=== PATIENT | male | born 1985 | race Caucasian/White ===

== ENCOUNTER 2018-08-29 20:35 | Observation (INO) ==
[2018-08-29] MEDS ORDERED: Aspirin 81 MG TAB.CHEW PO STA (20:57)
--- NOTE | 2018-08-29 21:01 | Emergency Department Note ---
Disposition Clinical Impression: Premature ventricular contractions Chest pain Qualifiers: Chest pain type: unspecified Qualified Code(s): R07.9 - Chest pain, unspecified Syncope Qualifiers: Syncope type: unspecified Qualified Code(s): R55 - Syncope and collapse Disposition: Admitted As Inpatient Condition: Good Chest Pain HPI - General Chief Complaint: ED Chest Pain Stated Complaint: CP / +LOC Time Seen by Provider: 08/29/18 20:51 Source: patient, family Limitations: no limitations Vital Signs Reviewed: Yes Nursing Notes Reviewed: Yes - History of Present Illness HPI Narrative: 33-year-old male who presents emergency Department with complaints of chest pain, shortness of breath. He states the pain started approximately 5 PM today. He has been sudden onset with a sided severe pressure that radiates into his left arm and neck. He admits to similar episode of pain and he was told he had a "small heart attack" at [facility]. He also notes shortness of breath and diaphoresis with this pain. He has had 2 episodes of nausea and vomiting since onset of pain. He has taken ibuprofen at home without improvement of symptoms. Family with him states he had an episode of loss of consciousness where he was sitting comfortably and then hunched over and was unresponsive. He took approximately 3-5 minutes to come back to his baseline mental status. He otherwise denies any abdominal pain, back pain, diarrhea, dysuria, hematuria. Severity scale (1-10): 10 - Related Data Home Medications Medication Instructions Recorded Confirmed Tizanidine HCl [Zanaflex] 4 mg PO TID PRN 06/24/18 08/30/18 Ibuprofen [Motrin] 800 mg PO Q8HR PRN 08/30/18 08/30/18 Allergies Allergy/AdvReac Type Severity Reaction Status Date / Time dicyclomine [From Bentyl] Allergy Anaphylaxis Verified 08/29/18 20:40 hydrocodone [From [place]] Allergy Itching Verified 08/29/18 20:40 morphine Allergy Difficulty Verified 08/29/18 20:40 Breathing oxycodone [From Percocet] Allergy Hives Verified 08/29/18 20:40 Review of Systems: In addition to that documented in the HPI above, the additional ROS was obtained: General: Denies fever. Denies chills. Denies weight loss. Denies behavioral change. Eyes: Denies visual changes. ENT: Denies nasal congestion. Denies sore throat. Denies hearing change. Cardio: ADMITS chest pain. Denies palpitations. Respiratory: Denies cough. ADMITS shortness of breath. Denies wheezing. GI: ADMITS nausea, vomiting, DENIES diarrhea. Denies hematochezia or melena. Denies abdominal pain. : Denies dysuria, hematuria, or urinary retention MSK: Denies back pain. Denies joint swelling. Neuro: Denies slurred speech. Denies numbness or tingling. Denies focal weakness. Denies headache. ADMITS loss of consciousness. Psych: Denies mood changes. Chest Pain PMH - Past Medical History Medical history: Reports: GERD, myocardial infarction Surgical history: Reports: appendectomy, cholecystectomy, orthopedic, other Psychiatric history: Reports: no psych history - Social History Smoking Status: Current every day smoker Alcohol use: Reports: rarely Drug use: Reports: none Physical Exam General: Conversant. No apparent distress. Follow commands. Appears stated age. Slightly diaphoretic. Neck: No JVD. Trachea midline. Neck supple. Eyes: PERRL. No scleral icterus. HENT: Normocephalic and atraumatic. Moist mucus membranes. Cardiovascular: Regular rate and rhythm. Normal S1 and S2. No murmurs appreciated. Normal capillary refill. Extremities well perfused with 2+ distal pulses equal bilaterally. No edema. Pulmonary: Normal and equal breath sounds bilaterally, anteriorly and posteriorly. No wheezes, rales, or rhonchi. Not in respiratory distress. Speaks in full sentences. Abdomen: Soft, nondistended, and tontender. No bruits or masses. No guarding. Neuro: Alert and oriented x3. No slurred speech. No focal deficits noted. Skin: No rashes noted on visualized skin. Musculoskeletal: No bony abnormalities visualized. Moves all extremities. Psych: Anxious appearing. Makes appropriate eye contact. - General Limitations: no limitations General appearance: alert Course Vital Signs Temperature 98.6 F 08/29/18 20:45 Pulse Rate 76 08/29/18 20:45 Respiratory Rate 28 08/29/18 20:45 Blood Pressure 168/105 08/29/18 20:45 O2 Sat by Pulse Oximetry 98 08/29/18 20:45 Temperature 98.1 F 08/30/18 00:19 Pulse Rate 70 08/30/18 00:19 Respiratory Rate 22 08/30/18 00:19 Blood Pressure 95/63 08/30/18 00:19 O2 Sat by Pulse Oximetry 99 08/30/18 00:19 Oxygen Delivery Oxygen Delivery Room Air Chest Pain - MDM Narrative Medical decision making narrative: 33-year-old male presenting with chest pain which started a few hours prior to arrival. The patient states he does have history of heart attack and this feels similar. Initial vital signs are significant for hypertension. The patient does appear anxious on exam and mildly diaphoretic. Did obtain chest x-ray, EKG, CBC, BMP, troponin as well as urine drug screen. Chest x-ray shows no evidence of focal consolidation. EKG shows significant PVCs which persisted throughout his emergency department stay. CBC and BMP were grossly unremarkable. Troponin 1 negative. The patient did have significant imp rovement in his pain with nitroglycerin as well as Ativan. His vital signs have remained stable while here in the emergency department though after nitroglycerin his blood pressure did drop. Of note these blood pressures were while he was sleeping comfortably. 1 L fluid bolus given. Given the patient's history and heart score of 5 to believe he will require further ACS rule out. Aspirin 325mg given. Discussed case with on-call hospitalist Dr. Maravilla who agrees with plan for admission and accepts the patient to the inpatient service. Patient agrees with and understands course of treatment plan including plan for admission. All questions answered. - Medical Records Medical records reviewed: Yes I reviewed the patient's medical records. - Lab Data Lab results reviewed: Yes I reviewed the patient's lab results. Result diagrams: 08/29/18 20:52 08/29/18 20:52 Lab Results 08/29/18 08/29/18 08/29/18 Range/Units 20:52 20:52 20:52 WBC 7.5 (4.3-11.1) K/mcL RBC 5.01 (4.19-5.50) M/mcL Hgb 15.1 (12.9-16.9) g/dL Hct 42.9 (37.5-50.1) % MCV 85.6 (83.0-100.0) fL MCH 30.1 (28.0-33.3) pg MCHC 35.2 (31.6-35.5) g/dL RDW 12.3 (11.5-14.5) % Plt Count 376 (140-400) K/mcL MPV 9.5 (9.4-12.4) fL Immature Gran % 0.3 (0-4) % Seg Neutrophils % 60.5 % Lymphocytes % 28.6 % Monocytes % 7.0 % Eosinophils % 2.9 % Basophils % 0.7 % Neutrophils # 4.5 (1.6-8.9) K/mcL Lymphocytes # 2.1 (0.6-4.6) K/mcL Monocytes # 0.5 (0.0-1.3) K/mcL Eosinophils # 0.2 (0.0-0.6) K/mcL Basophils # 0.1 (0.0-0.2) K/mcL PT 12.7 H (9.4-12.1) Seconds INR 1.1 APTT 34.7 (26.0-36.0) Seconds Sodium 140 (136-145) mEq/L Potassium 3.5 (3.5-5.1) mEq/L Chloride 102 (98-107) mEq/L Carbon Dioxide 29 (23-29) mEq/L BUN 14 (6-20) mg/dL Creatinine 1.21 (0.70-1.30) mg/dL Est GFR ( Amer) > 60 (> 60) Est GFR (Non-Af Amer) > 60 (> 60) BUN/Creatinine Ratio 12 (6-26) Glucose 93 (70-105) mg/dL Calculated Osmolality 290 (280-300) Calcium 9.7 (8.6-10.3) mg/dL Troponin I < 0.03 (< 0.04) ng/mL Urine Opiates Screen (Rqqnjp=965) ng/mL Ur Barbiturates Screen (Ahuuif=227) ng/mL Ur Phencyclidine Scrn (Cutoff=25) ng/mL Ur Amphetamines Screen (Gpvpnl=2509) ng/mL U Benzodiazepines Scrn (Taeono=490) ng/mL Urine Cocaine Screen (Cutoff= 300) ng/mL U Marijuana (THC) Screen (Cutoff = 50) ng/mL Ur Drug Screen Interp 08/29/18 Range/Units 21:30 WBC (4.3-11.1) K/mcL RBC (4.19-5.50) M/mcL Hgb (12.9-16.9) g/dL Hct (37.5-50.1) % MCV (83.0-100.0) fL MCH (28.0-33.3) pg MCHC (31.6-35.5) g/dL RDW (11.5-14.5) % Plt Count (140-400) K/mcL MPV (9.4-12.4) fL Immature Gran % (0-4) % Seg Neutrophils % % Lymphocytes % % Monocytes % % Eosinophils % % Basophils % % Neutrophils # (1.6-8.9) K/mcL Lymphocytes # (0.6-4.6) K/mcL Monocytes # (0.0-1.3) K/mcL Eosinophils # (0.0-0.6) K/mcL Basophils # (0.0-0.2) K/mcL PT (9.4-12.1) Seconds INR APTT (26.0-36.0) Seconds Sodium (136-145) mEq/L Potassium (3.5-5.1) mEq/L Chloride (98-107) mEq/L Carbon Dioxide (23-29) mEq/L BUN (6-20) mg/dL Creatinine (0.70-1.30) mg/dL Est GFR ( Amer) (> 60) Est GFR (Non-Af Amer) (> 60) BUN/Creatinine Ratio (6-26) Glucose (70-105) mg/dL Calculated Osmolality (280-300) Calcium (8.6-10.3) mg/dL Troponin I (< 0.04) ng/mL Urine Opiates Screen Negative (Xyexbo=717) ng/mL Ur Barbiturates Screen Negative (Stdfph=125) ng/mL Ur Phencyclidine Scrn Negative (Cutoff=25) ng/mL Ur Amphetamines Screen Negative (Wcuwfv=5466) ng/mL U Benzodiazepines Scrn Negative (Zyeyoi=512) ng/mL Urine Cocaine Screen Negative (Cutoff= 300) ng/mL U Marijuana (THC) Screen Positive H (Cutoff = 50) ng/mL Ur Drug Screen Interp See Below - Radiology Data Radiology results reviewed: Yes I reviewed the patient's radiology results. Chest X-Ray 08/29/18 20:52 IMPRESSION: No acute process. D/ / Ashish Espinoza MD / sAhish Espinoza MD Interpreting Provider: Ashish Espinoza MD - EKG Data EKG attestation: Yes I reviewed and interpreted this EKG. EKG results narrative: Normal sinus rhythm rate of 98. Multiple PVCs otherwise no evidence of acute ST elevations. This is when compared with prior from 06/15/16 PVCs are new. Heart Score - Score History: Highly Suspicious EKG: Non Specific repolarisation Disturbance Age: Less than 45 Risk Factors: Equal/Greater than 3 risk factor or history of atherosclerotic disease Troponin: Less than normal limit HEART Score Total: 5
[2018-08-29] MEDS ORDERED: *HR* LORazepam 2 MG/ML VIAL IVP ONE (21:10)
[2018-08-29] MEDS: Nitroglycerin 0.4 MG TAB.SUBL SL PRN ×2 (21:13→21:21)
--- NOTE | 2018-08-29 21:17 | Emergency Department Note ---
Disposition Clinical Impression: Premature ventricular contractions Chest pain Qualifiers: Chest pain type: unspecified Qualified Code(s): R07.9 - Chest pain, unspecified Syncope Qualifiers: Syncope type: unspecified Qualified Code(s): R55 - Syncope and collapse Disposition: Admitted As Inpatient Condition: Good General Adult HPI - General Chief complaint: ED Chest Pain Stated complaint: CP / +LOC Time Seen by Provider: 08/29/18 20:51 Source: patient, family Limitations: no limitations Nursing Notes Reviewed: Yes Vital Signs Reviewed: Yes - History of Present Illness Pain Scale: 10 - Related Data Home Medications Medication Instructions Recorded Confirmed Gabapentin [Neurontin] 300 mg PO TID 06/24/18 06/24/18 Tizanidine HCl [Zanaflex] 4 mg PO TID PRN 06/24/18 06/24/18 Previous Rx's Medication Instructions Recorded Clindamycin [Cleocin] 150 mg PO Q6HR #7 capsule 06/24/18 Ibuprofen [Motrin] 800 mg PO Q8HR #30 tablet 06/24/18 Allergies Allergy/AdvReac Type Severity Reaction Status Date / Time dicyclomine [From Bentyl] Allergy Anaphylaxis Verified 08/29/18 20:40 hydrocodone [From [place]] Allergy Itching Verified 08/29/18 20:40 morphine Allergy Difficulty Verified 08/29/18 20:40 Breathing oxycodone [From Percocet] Allergy Hives Verified 08/29/18 20:40 Past Medical History - Past Medical History Medical history: Reports: GERD, myocardial infarction Surgical history: Reports: appendectomy, cholecystectomy, orthopedic, other Psychiatric history: Reports: no psych history - Social History Smoking Status: Current every day smoker Smokeless Tobacco Status: No Alcohol use: Reports: rarely Drug use: Reports: none Physical Exam - General Limitations: no limitations General appearance: alert Course Vital Signs Temperature 98.6 F 08/29/18 20:45 Pulse Rate 76 08/29/18 20:45 Respiratory Rate 28 08/29/18 20:45 Blood Pressure 168/105 08/29/18 20:45 O2 Sat by Pulse Oximetry 98 08/29/18 20:45 Temperature 98.6 F 08/29/18 20:45 Pulse Rate 79 08/29/18 23:06 Respiratory Rate 16 08/29/18 23:06 Blood Pressure 95/61 08/29/18 23:06 O2 Sat by Pulse Oximetry 100 08/29/18 23:06 Oxygen Delivery Oxygen Delivery Room Air Medical Decision Making - Medical Records Medical records reviewed: Yes I reviewed the patient's medical records. - Lab Data Lab results reviewed: Yes I reviewed the patient's lab results. Result diagrams: 08/29/18 20:52 08/29/18 20:52 Lab Results 08/29/18 08/29/18 08/29/18 Range/Units 20:52 20:52 20:52 WBC 7.5 (4.3-11.1) K/mcL RBC 5.01 (4.19-5.50) M/mcL Hgb 15.1 (12.9-16.9) g/dL Hct 42.9 (37.5-50.1) % MCV 85.6 (83.0-100.0) fL MCH 30.1 (28.0-33.3) pg MCHC 35.2 (31.6-35.5) g/dL RDW 12.3 (11.5-14.5) % Plt Count 376 (140-400) K/mcL MPV 9.5 (9.4-12.4) fL Immature Gran % 0.3 (0-4) % Seg Neutrophils % 60.5 % Lymphocytes % 28.6 % Monocytes % 7.0 % Eosinophils % 2.9 % Basophils % 0.7 % Neutrophils # 4.5 (1.6-8.9) K/mcL Lymphocytes # 2.1 (0.6-4.6) K/mcL Monocytes # 0.5 (0.0-1.3) K/mcL Eosinophils # 0.2 (0.0-0.6) K/mcL Basophils # 0.1 (0.0-0.2) K/mcL PT 12.7 H (9.4-12.1) Seconds INR 1.1 APTT 34.7 (26.0-36.0) Seconds Sodium 140 (136-145) mEq/L Potassium 3.5 (3.5-5.1) mEq/L Chloride 102 (98-107) mEq/L Carbon Dioxide 29 (23-29) mEq/L BUN 14 (6-20) mg/dL Creatinine 1.21 (0.70-1.30) mg/dL Est GFR ( Amer) > 60 (> 60) Est GFR (Non-Af Amer) > 60 (> 60) BUN/Creatinine Ratio 12 (6-26) Glucose 93 (70-105) mg/dL Calculated Osmolality 290 (280-300) Calcium 9.7 (8.6-10.3) mg/dL Troponin I < 0.03 (< 0.04) ng/mL Urine Opiates Screen (Sibtbk=425) ng/mL Ur Barbiturates Screen (Ixkhkm=648) ng/mL Ur Phencyclidine Scrn (Cutoff=25) ng/mL Ur Amphetamines Screen (Zxenrp=0251) ng/mL U Benzodiazepines Scrn (Cvfprx=271) ng/mL Urine Cocaine Screen (Cutoff= 300) ng/mL U Marijuana (THC) Screen (Cutoff = 50) ng/mL Ur Drug Screen Interp 08/29/18 Range/Units 21:30 WBC (4.3-11.1) K/mcL RBC (4.19-5.50) M/mcL Hgb (12.9-16.9) g/dL Hct (37.5-50.1) % MCV (83.0-100.0) fL MCH (28.0-33.3) pg MCHC (31.6-35.5) g/dL RDW (11.5-14.5) % Plt Count (140-400) K/mcL MPV (9.4-12.4) fL Immature Gran % (0-4) % Seg Neutrophils % % Lymphocytes % % Monocytes % % Eosinophils % % Basophils % % Neutrophils # (1.6-8.9) K/mcL Lymphocytes # (0.6-4.6) K/mcL Monocytes # (0.0-1.3) K/mcL Eosinophils # (0.0-0.6) K/mcL Basophils # (0.0-0.2) K/mcL PT (9.4-12.1) Seconds INR APTT (26.0-36.0) Seconds Sodium (136-145) mEq/L Potassium (3.5-5.1) mEq/L Chloride (98-107) mEq/L Carbon Dioxide (23-29) mEq/L BUN (6-20) mg/dL Creatinine (0.70-1.30) mg/dL Est GFR ( Amer) (> 60) Est GFR (Non-Af Amer) (> 60) BUN/Creatinine Ratio (6-26) Glucose (70-105) mg/dL Calculated Osmolality (280-300) Calcium (8.6-10.3) mg/dL Troponin I (< 0.04) ng/mL Urine Opiates Screen Negative (Dtcxpo=892) ng/mL Ur Barbiturates Screen Negative (Escwfn=412) ng/mL Ur Phencyclidine Scrn Negative (Cutoff=25) ng/mL Ur Amphetamines Screen Negative (Aixxqt=3825) ng/mL U Benzodiazepines Scrn Negative (Ucntmi=691) ng/mL Urine Cocaine Screen Negative (Cutoff= 300) ng/mL U Marijuana (THC) Screen Positive H (Cutoff = 50) ng/mL Ur Drug Screen Interp See Below - Radiology Data Radiology results reviewed: Yes I reviewed the patient's radiology results. Chest X-Ray 08/29/18 20:52 IMPRESSION: No acute process. D/ / Ashish Espinoza MD / Ashish Espinoza MD Interpreting Provider: Ashish Espinoza MD - EKG Data EKG #1 EKG attestation: Yes I reviewed and interpreted this EKG. EKG results narrative: Normal sinus rhythm with ventricular rate of 98. No ST segment elevation or depression. Multiple unifocal PVCs. Otherwise no significant change from prior EKG dated 06/15/2016. Attestation Statement - Attestation Attestation: I, Richard Awan MD, personally evaluated this patient and discussed their management with the resident physician. I reviewed the resident's note and agree with the documented findings, medical decision making, and plan of care. 33-year-old male presents to the emergency department with a complaint of severe sharp stabbing left upper chest pain that started 4 hours prior to arrival. He states it feels like a knife twisting in his chest. It hurts to breathe. Feels short of breath. He did have some nausea and vomited. Mild diaphoresis also. The pain radiates to the left shoulder and left upper arm. Patient reportedly had an [place] in 2016 with similar symptoms. Also he apparently had a syncopal episode about 1.5 hours prior to coming to the emergency department. This was witnessed and companions report that he was sitting in a chair leaned over forward into his lap and rocking because of the pain when he passed out and fell over onto his side. He was hyperventilating during this episode. He continued breathing while he was unresponsive and did not get cyanotic. They report he was unresponsive for a minute or 2 and then woke up. On examination patient is a well-developed well-nourished male in no acute distress but appears to be in moderate discomfort. He is hyperventilating and appears very anxious. There is no cyanosis or diaphoresis. No tenderness to palpation of the chest wall. Breath sounds are clear and equal bilaterally. Heart is regular rate and rhythm with frequent ectopy. Frequent PVCs on the air sampling and monitoring. Abdomen soft and nontender with normal bowel sounds. No pedal edema. EKG shows a normal sinus rhythm with ventricular rate of 98. No ST segment elevation or depression. There are frequent unifocal PVCs. Otherwise no s ignificant change from prior EKG dated 06/15/2016. Chest x-ray negative. Labs reviewed. The hospitalist, Dr. Maravilla, was consulted and accepted admission of the patient.
[2018-08-29 21:19] LABS: Basophils # 0.1 K/mcL (0.0-0.2); Basophils % 0.7 %; Eosinophils # 0.2 K/mcL (0.0-0.6); Eosinophils % 2.9 %; Hematocrit 42.9 % (37.5-50.1); Hemoglobin 15.1 g/dL (12.9-16.9); Immature Granulocytes % 0.3 % (0-4); Lymphocytes # 2.1 K/mcL (0.6-4.6); Lymphocytes % 28.6 %; Mean Corpuscular HGB Conc 35.2 g/dL (31.6-35.5); Mean Corpuscular Hemoglobin 30.1 pg (28.0-33.3); Mean Corpuscular Volume 85.6 fL (83.0-100.0); Mean Platelet Volume 9.5 fL (9.4-12.4); Monocytes # 0.5 K/mcL (0.0-1.3); Neutrophils # 4.5 K/mcL (1.6-8.9); Platelet Count 376 K/mcL (140-400); Red Blood Count 5.01 M/mcL (4.19-5.50); Red Cell Distribution Width 12.3 % (11.5-14.5); Segmented Neutrophils % 60.5 %
[2018-08-29 21:26] LABS: INR 1.1; Prothrombin Time 12.7 Seconds (9.4-12.1)
[2018-08-29 21:29] LABS: Activated Partial Thrombo Time 34.7 Seconds (26.0-36.0)
[2018-08-29 21:38] LABS: BUN/Creatinine Ratio 12 (6-26); Blood Urea Nitrogen 14 mg/dL (6-20); Calcium 9.7 mg/dL (8.6-10.3); Carbon Dioxide 29 mEq/L (23-29); Chloride 102 mEq/L (98-107); Glucose 93 mg/dL (70-105); Osmolality,Calculated 290 (280-300); Potassium 3.5 mEq/L (3.5-5.1); Sodium 140 mEq/L (136-145); eGFR For Non-African Americans > 60 (> 60)
[2018-08-29 21:39] LABS: Troponin I < 0.03 ng/mL (< 0.04)
[2018-08-29 21:51] LABS: Amphetamine Screen,Urine Negative ng/mL (Cutoff=1000); Barbiturate Screen,Urine Negative ng/mL (Cutoff=200); Benzodiazepines Screen,Urine Negative ng/mL (Cutoff=200); Cannabinoid Screen,Urine Positive ng/mL (Cutoff = 50); Cocaine Screen,Urine Negative ng/mL (Cutoff= 300); Opiate Screen,Urine Negative ng/mL (Cutoff=300); Phencyclidine Screen,Urine Negative ng/mL (Cutoff=25)
[2018-08-29] MEDS ORDERED: 0.9 % Sodium Chloride 1,000 ML IVC ONE (23:10)
[2018-08-29] MEDS ORDERED: 0.9 % Sodium Chloride 1,000 ML ONE (23:12)
[2018-08-30] MEDS ORDERED: Naloxone 0.4 MG/ML INJ IVP PRN (00:43)
[2018-08-30] MEDS ORDERED: tiZANidine 4 MG TABLET PO PRN (00:48)
--- NOTE | 2018-08-30 01:01 | Internal Med History&Physical ---
Date of Encounter: 08/30/18 Time of Encounter: 00:58 Internal Medicine - H&P: HPI Chief complaint: Chest Pain History of present illness: Mr. Richard is a 33 year old male with a past medical history of GERD, smoking history and reported NM in 2016 who presents with chest pain. Patient states that around 5 PM yesterday afternoon while sitting on the couch watching TV, he developed sudden onset left-sided chest pain, radiating to his left arm and neck. Pain described as if someone was repeatedly stabbing him from the inside out. Pain was 9 out of 10 in intensity. Does not recall any aggravating factors. Patient did state that pain diminished after receiving nitroglycerin here in the office hospital. Patient vomited nonbloody nonbilious emesis 1 hour prior to arrival. Patient initially assumed symptoms are secondary to a muscle pull or anxiety attack which has happened before. However, when eventually made him come in was that he passed out while sitting on the floor when she does not recall. Syncopal episode was witnessed by his who states that he was sitting on the floor and then all of a sudden rolled over. She states he was unconscious for approximately 1-2 minutes. Does not report seeing any tonic- clonic activity. No reports of any postictal confusion, however, patient does state that he felt off balance after he stood up which took him a few minutes to regain. Patient states that in 2016 he had a similar episode for which she was evaluated at [facility] and was told he had a "mini heart attack". Patient is currently not on any medications except he reports he takes 800 mg of ibuprofen approximately 3-4 times a week for headaches or shoulder pain. Patient does report dark stools for the past couple days. Patient denies any drug use aside from occasional marijuana. Patient currently smokes a pack to a pack and half a day. Reports significant family history of heart disease. Denies any family history of sudden cardiac . On arrival patient was afebrile and hypertensive with a blood pressure of 168/105. Laboratory workup was relatively unremarkable. Initial troponin was negative. EKG showed biatrial enlargement with multiple PVCs. Chest x-ray was unremarkable. Patient received loading dose of aspirin. Past Med Surg Social Fam HX - Past Medical History Medical history: GERD, myocardial infarction Psychiatric history: no psych history - Past Surgical History Surgical History: appendectomy, cholecystectomy, orthopedic, other Additional surgical history: Labrum repair in the L shoulder - Social History Smoking Status: Current every day smoker Packs per day: 1 Smokeless Tobacco Status: No Alcohol use: rarely Drug use: none - Family History Mother Living Status: Still Living Hx Family Cancer: Yes (Lung, Breast, Colorectal cancer) Hx Family Medical Disorders: Yes (Kidney Failure) Internal Medicine - H&P: Meds Tizanidine HCl [Zanaflex] 4 mg PO TID PRN 06/24/18 [History] Ibuprofen [Motrin] 800 mg PO Q8HR PRN 08/30/18 [History] Allergy/AdvReac Type Severity Reaction Status Date / Time dicyclomine [From Bentyl] Allergy Anaphylaxis Verified 08/29/18 20:40 hydrocodone [From [place]] Allergy Itching Verified 08/29/18 20:40 morphine Allergy Difficulty Verified 08/29/18 20:40 Breathing oxycodone [From Percocet] Allergy Hives Verified 08/29/18 20:40 All Systems PM: A 10-system review of systems was performed and is negative for pertinent findings except as documented above in the HPI. - Constitutional Constitutional: no chills, no fever(s), no night sweats - EENT Eyes: no change in vision, no discharge, no pain, no photophobia Ears: no ear discharge, no ear pain, no tinnitus Nose, mouth and throat: no dysphagia, no nasal discharge, no neck pain, no sore throat - Cardiovascular Cardiovascular ROS IM: no chest pain, no diaphoresis, no dyspnea, no lightheadedness, no palpitations, no syncope - Respiratory Respiratory: no cough, no dyspnea, no wheezing, no excessive phlegm production - Gastrointestinal Gastrointestinal: no abdominal pain, no diarrhea, no hematemesis, no hematochezia, no melena, no nausea, no vomiting - Musculoskeletal Musculoskeletal ROS IM: no numbness, no tingling - Integumentary Integumentary IM: no rash, no unusual bruising - Neurological Neurological ROS: no confusion, no convulsions, no focal weakness, no numbness, no tingling, no tremor(s) - Hematologic/Lymphatic Hematologic/Lymphatic: no easy bruising - Constitutional Vitals: Temp Pulse Resp BP Pulse Ox 98.1 F 70 22 95/63 99 08/30/18 00:19 08/30/18 00:19 08/30/18 00:19 08/30/18 00:19 08/30/18 00:19 Exam: General: Alert and oriented 3 lying in bed complaining of chest pain. Skin:Normal color, no rash, no lesions. HEENT:EOM, pupils equal, round and reactive. Cardiovascular:Normal S1 & S2, no rubs, murmurs or gallops. No JVD. Pulse regular. Lungs:Normal breath sounds, no wheezes or crackles. Abdomen:Soft, non-tender, no rigidity. Extremities:No deformity, no edema or tenderness, no joint swelling or clubbing. Neurological:Normal cognition and motor skills. Pulses:Carotid and radial pulses normal +2. Rest of the physical exam is non contributory Internal Med - H&P Results - Labs CBC & Chem 7: 08/30/18 03:12 08/30/18 03:12 Labs: Short CBC 08/29/18 Range/Units 20:52 WBC 7.5 (4.3-11.1) K/mcL Hgb 15.1 (12.9-16.9) g/dL Hct 42.9 (37.5-50.1) % Plt Count 376 (140-400) K/mcL Neutrophils # 4.5 (1.6-8.9) K/mcL BMP 08/29/18 20:52 Sodium 140 Potassium 3.5 Chloride 102 Carbon Dioxide 29 BUN 14 Creatinine 1.21 Glucose 93 Calcium 9.7 Cardiac Enzymes 08/29/18 Range/Units 20:52 Troponin I < 0.03 (< 0.04) ng/mL - Impressions ITS Impressions Chest X-Ray 08/29/18 20:52 IMPRESSION: No acute process. D/ / Ashish Espinoza MD / Ashish Espinoza MD Interpreting Provider: Ashish Espinoza MD - Assessment and plan (1) Chest pain Status: Acute Assessment and plan: Patient reported NM in 2016 presents with atypical chest pain described as left- sided, radiating to his left arm and neck, sharp/stabbing, non-pleuritic in nature. Negative troponins. EKG shows biatrial enlargement with frequent PVCs. UA positive for marijuana. -Trend troponin -Telemetry -We will obtain a CTA to rule out dissection given hypertension and syncope -We will obtain stress test in the morning if CT imaging and troponins remain negative. Qualifiers: Chest pain type: unspecified Qualified Code(s): R07.9 - Chest pain, unspecified (2) Premature ventricular contractions Status: Acute Assessment and plan: Frequent PVCs noted on EKG. We will continue to monitor for now. (3) Syncope Status: Acute Assessment and plan: Report of syncope in the setting of chest pain witnessed by patient's lasting 1-2 minutes with no reports of tonic-clonic activity or post-ictal confusion; patient reports feeling off balance for several minutes shortly after arising. Low suspicion for seizure. -We will check orthostatics -We will obtain echocardiogram -We will obtain stool guaiac given reported NSAID use and dark stools. -See chest pain above Qualifiers: Syncope type: unspecified Qualified Code(s): R55 - Syncope and collapse (4) DVT prophylaxis Status: Acute Assessment and plan: Pneumatic compression devices - Time Spent With Patient Total time spent is greater than 50% in coordination of care (as documented) at patient's floor/unit and/or counseling patient:
[2018-08-30 03:57] LABS: Hematocrit 36.8 % (37.5-50.1); Mean Corpuscular HGB Conc 34.5 g/dL (31.6-35.5); Mean Corpuscular Hemoglobin 30.1 pg (28.0-33.3); Mean Corpuscular Volume 87.2 fL (83.0-100.0); Mean Platelet Volume 9.7 fL (9.4-12.4); Platelet Count 299 K/mcL (140-400); Red Blood Count 4.22 M/mcL (4.19-5.50); Red Cell Distribution Width 12.2 % (11.5-14.5)
[2018-08-30 04:00] LABS: Hemoglobin 12.7 g/dL (12.9-16.9)
[2018-08-30] MEDS ORDERED: 0.9 % Sodium Chloride 1,000 ML IVC SCH (04:00)
[2018-08-30 04:18] LABS: BUN/Creatinine Ratio 19 (6-26); Blood Urea Nitrogen 19 mg/dL (6-20); Calcium 8.5 mg/dL (8.6-10.3); Carbon Dioxide 27 mEq/L (23-29); Chloride 108 mEq/L (98-107); Glucose 90 mg/dL (70-105); Magnesium 2.1 mg/dL (1.6-2.6); Osmolality,Calculated 294 (280-300); Potassium 3.7 mEq/L (3.5-5.1); Sodium 141 mEq/L (136-145); eGFR For Non-African Americans > 60 (> 60)
[2018-08-30] MEDS ORDERED: Isovue-370 500 ML BOTTLE IVP ONE (06:19)
[2018-08-30] MEDS ORDERED: Regadenoson 0.4 MG/5 ML SYRINGE IVP ONE (07:56)
[2018-08-30] MEDS ORDERED: *HR* OxyCODONE/APAP 5/325 TABLET PO ONE (11:15)
[2018-08-30 11:48] VITALS: BP 116/70
--- NOTE | 2018-08-30 12:18 | Discharge Summary ---
<June Mitchell - Last Filed: 08/30/18 12:44> - NOTES TO OUTPATIENT PROVIDER Notes to Outpatient Provider: PVC and syncope. No concerning arrythmias while on telemetry. Orders not resulted at time of discharge: Pending orders 08/30/18 01:09 NM lexy perf SPECT multi [NM] Routine 08/30/18 06:07 Stool guiac [Occult Blood,Stool] [BF] Routine Date of Encounter: 08/30/18 Time of Encounter: 10:00 - Discharge Diagnosis (1) DVT prophylaxis Priority: Secondary Status: Acute (2) Chest pain Priority: Primary Status: Acute Qualifiers: Chest pain type: unspecified Qualified Code(s): R07.9 - Chest pain, unspecified (3) Premature ventricular contractions Priority: Secondary Status: Acute (4) Syncope Priority: Secondary Status: Acute Qualifiers: Syncope type: unspecified Qualified Code(s): R55 - Syncope and collapse Hospital course: Mr. Richard is a 33 year old male who presented to the ED with chest pain. Chest x-ray showed no acute process, CTA for dissection was negative for aortic dissection. Nuclear stress test is negative for ischemic changes but did note occasional PVCs during stress. Echo showed an EF of 55% and no abnormalities. Troponins are negative 3. EKG showed no evidence of acute ST elevation. Patient no signs of infection white blood cell count was within normal limits and patient was afebrile. Urine drug screen postive for marijuana. Chest pain was not able to be reproduced upon physical exam. Chest pain improved with Percocet. ACS ruled out. No signs of pericarditis. Chest pain most likely related to anxiety or GERD as he has had panic attacks. Syncope likely due to vasovagal but EKG did show PVCs. Will need to f/u with cardiology for PVCs and syncope. Patient was discharged home with instructions to follow-up with cardiology within the next week and primary care physician within the next week. Discharge discussed with: patient - Time Spent with Patient Total time spent providing and/or coordinating discharge services: - Discharge Medications Home Medications: RX: Tizanidine HCl [Zanaflex] 4 mg PO TID PRN 06/24/18 [History] RX: Ibuprofen [Motrin] 800 mg PO Q8HR PRN 08/30/18 [History] Allergies/Adverse Reactions: Allergy/AdvReac Type Severity Reaction Status Date / Time dicyclomine [From Bentyl] Allergy Anaphylaxis Verified 08/29/18 20:40 hydrocodone [From [place]] Allergy Itching Verified 08/29/18 20:40 morphine Allergy Difficulty Verified 08/29/18 20:40 Breathing oxycodone [From Percocet] Allergy Hives Verified 08/29/18 20:40 Date of admission: 08/29/18 23:01 Primary care physician: PCP NONE Consults: 08/30/18 00:43 Consult to Cardiac Rehabilitation-Phase1 [CONS] Routine Comment: Reason for Consult: AMI Call Completed: Yes - Constitutional Vitals: Temp Pulse Resp BP Pulse Ox 97.5 F L 69 18 116/70 98 08/30/18 11:47 08/30/18 11:47 08/30/18 11:47 08/30/18 11:47 08/30/18 11:47 Exam: Constitutional: Alert, in no acute distress Head: Normocephalic, atraumatic Heart: Normal, regular rate and rhythm, no murmurs, no chest tenderness Lungs: Clear to auscultation, no wheezes, rales, or rhonchi Abdomen: Soft, nondistended, nontender, bowel sounds present and normal, no guarding or rigidity. Extremities: No edema, No clubbing, radial pulse +2/4, capillary refill <2sec. Skin: Skin warm and dry, no lesions, no rashes, no jaundice Neurologic: Cranial nerves II through XII grossly intact, strength 5/5 in all extremities Psych: Cooperative with exam, good eye contact, cognitive function intact, speech clear, thought process logical, and goal directed - Patient Status Disposition: Home, Self-Care Condition: Good Functional capacity at discharge: independent ambulation Overall status at discharge: patient is progressing back to baseline - Discharge Instructions Instructions: Chest Pain (DC), Chest Pain (GEN) Follow Up With: [facility] [Provider Group] (An appointment has been requested. the office will contact you at home to schedule an appointment. ) [facility] [Outside] - 09/07/18 2:00 pm Additional Instructions: Please call to follow-up with cardiology outpatient within the next week for fainting. Please call your primary care physician to schedule an appointment within the next week. - Diet and Activity Activity: increase activity as tolerated Diet: advance to your usual diet <Angeles Nava - Last Filed: 08/30/18 14:13> Orders not resulted at time of discharge: Pending orders 08/30/18 01:09 NM lexy perf SPECT multi [NM] Routine 08/30/18 06:07 Stool guiac [Occult Blood,Stool] [BF] Routine Date of Encounter: 08/30/18 - Discharge Diagnosis (1) DVT prophylaxis Status: Acute (2) Chest pain Status: Acute Qualifiers: Chest pain type: unspecified Qualified Code(s): R07.9 - Chest pain, unspecified (3) Premature ventricular contractions Status: Acute (4) Syncope Status: Acute Qualifiers: Syncope type: unspecified Qualified Code(s): R55 - Syncope and collapse Hospital course: Mr. Richard is a 33 year old male - Time Spent with Patient Total time spent providing and/or coordinating discharge services: Date of admission: 08/29/18 23:01 Primary care physician: PCP NONE Consults: 08/30/18 00:43 Consult to Cardiac Rehabilitation-Phase1 [CONS] Routine Comment: Reason for Consult: AMI Call Completed: Yes - Constitutional Vitals: Temp Pulse Resp BP Pulse Ox 97.5 F L 69 18 116/70 98 08/30/18 11:47 08/30/18 11:47 08/30/18 11:47 08/30/18 11:47 08/30/18 11:47 - Attending Attestation I examined this patient and my medical decision-making was reviewed with the Resident Physician Dr. Mitchell. I agree with the documented findings, disposition and treatment plan as described except to the extent set forth below. Mr. Richard is a 33 year old male with a past medical history of GERD, smoking history and reported MS in 2016 who presented with left sided chest pain. His pain relived with narcotics + Benadryl. He was admitted in the hospital and placed him on payable processor. His EKG did not show any ST, T changes. He does have multiple PVCs. He did go for nuclear stress test which came back is negative for any ischemia/infarction. His his CT of the chest is negative for any aortic dissection. His chest pain seems to be atypical and due to musculoskeletal. Will d/c him home in stable condition. Recommend to use Tylenol and Motrin as needed. Also counseled to quit drugs since his UDS came back as positive for marijuana. I did [id number] encounter more than 8 hours apart from colleague Dr. Roberts admission. chest; CTA No wheezing, no crackles, reproducible chest wall tenderness + Heart: S1S2+ RRR No murmurs
== END 2018-08-30 14:28 | disposition home or self-care (01) ==
LOC: 3BNU 20:35 → EMEROOARM 20:35 → SUATTDRO 23:01 → 3BNU 23:38
PROVIDERS: ADMIT Internal Medicine; ATTEND Family Medicine

== ENCOUNTER 2019-01-25 16:23 | Observation (INO) ==
--- NOTE | 2019-01-25 16:51 | Emergency Department Note ---
Disposition Clinical Impression: Suicidal ideation, Depression, Acute anxiety, Suicide attempt by drug overdose, Rhabdomyolysis, Marijuana abuse Disposition: Admitted As Inpatient Time of Disposition: 21:24 General Adult HPI - General Chief complaint: ED Psychiatric Symptoms Stated complaint: med clearance Time Seen by Provider: 01/25/19 16:49 Source: patient, family, EMS Limitations: no limitations - History of Present Illness HPI Narrative: 33-year-old male with history of psychiatric disease reports emergency department under a pink slip from [facility], the patient has been suicidal and attempted to overdose on Effexor yesterday. He states he took 10 75 mg tablets about 11:30 PM last night. He reports he has had insomnia and has not slept for 5 days. He scraped his left hand but describes no acute physically injury otherwise. His immunizations are up-to-date with tetanus shot being 2 years ago. The patient has had increasing anxiety and depression. His just left him and after she exited the premises he attempted overdose. The patient was sent to the emergency department for medical clearance and has been pre-accepted to the [facility] psychiatric service. The patient denies chest pain shortness of breath or syncope. No abdominal pain vomiting diarrhea or significant injury. No history of headache neck stiffness rash convulsion or weakness or numbness in the arms or legs. The patient does not describe palpitations. Pain Scale: 0 - Related Data Home Medications Medication Instructions Recorded Confirmed No Known Home Drugs 01/25/19 01/25/19 Allergies Allergy/AdvReac Type Severity Reaction Status Date / Time dicyclomine [From Bentyl] Allergy Anaphylaxis Verified 01/25/19 16:29 hydrocodone [From [place]] Allergy Itching Verified 01/25/19 16:29 morphine Allergy Difficulty Verified 01/25/19 16:29 Breathing oxycodone [From Percocet] Allergy Hives Verified 01/25/19 16:29 All systems ED: reviewed and negative except as stated. Past Medical History - Past Medical History Medical history: Reports: GERD, myocardial infarction Surgical history: Reports: appendectomy, cholecystectomy, orthopedic, other Psychiatric history: Reports: no psych history - Social History Smoking Status: Current every day smoker Smokeless Tobacco Status: No Alcohol use: Reports: none Drug use: Reports: none, marijuana Physical Exam - General Limitations: no limitations General appearance: alert, in no apparent distress - Head Head exam: atraumatic, normocephalic, normal inspection - Eye Eye exam: Present: normal appearance, PERRL, EOMI - ENT ENT exam: normal exam, normal oropharynx, mucous membranes moist, TM's normal bilaterally, normal external ear exam - Neck Neck exam: Present: normal inspection, full ROM, trachea midline - Chest Chest inspection: Present: normal inspection, symmetric chest wall rise. Absent: tenderness - Respiratory Respiratory exam: Present: normal lung sounds bilaterally. Absent: respiratory distress, prolonged expiratory phase - Cardiovascular Cardiovascular exam: Present: regular rate, normal rhythm, normal heart sounds - Abdominal Exam Abdominal exam: Present: soft, Non-Tender, normal bowel sounds. Absent: tenderness, distention, guarding, rebound, rigidity, trauma - Extremities Exam Extremities exam: Present: full ROM, normal capillary refill, other (Minor abrasions left dorsal metacarpal phalangeal areas without deep wound or evidence of bony or joint abnormality. No evidence of neurovascular or neuromuscular compromise in any extremity. The other extremities appear to be generally atraumatic warm and well-perfused.). Absent: tenderness, pedal edema, joint swelling, calf tenderness - Expanded Lower Extremity Exam Neurovascular/Tendon exam: Present: normal capillary refill. Absent: motor deficit, sensory deficit, tendon deficit, extremity cold to touch, pallor - Back Exam Back exam: Present: normal inspection, full ROM. Absent: tenderness, CVA tenderness (R), CVA tenderness (L), vertebral tenderness - Neurological Exam Neurological exam: Present: alert, oriented X3, CN II-XII intact. Absent: motor sensory deficit - Psychiatric Psychiatric exam: Present: normal affect, normal mood - Skin Skin exam: Present: warm, dry, intact, normal color Course Vital Signs Temperature 98.6 F 01/25/19 16:29 Pulse Rate 75 01/25/19 16:29 Respiratory Rate 15 01/25/19 16:29 Blood Pressure 130/90 01/25/19 16:29 O2 Sat by Pulse Oximetry 98 01/25/19 16:29 Temperature 98.6 F 01/25/19 16:29 Pulse Rate 75 01/25/19 16:29 Respiratory Rate 15 01/25/19 16:29 Blood Pressure 130/90 01/25/19 16:29 O2 Sat by Pulse Oximetry 98 01/25/19 16:29 Oxygen Delivery Oxygen Delivery Room Air Medical Decision Making - [facility] Narrative Medical decision making narrative: The patient apparently attempted an overdose taking Effexor 75 mg 10 tablets at about 11:30 PM. Poison control was notified, EKG reviewed, routine labs recommended and observation. The patient's laboratory studies were reviewed, he appears to have an element of rhabdomyolysis. IV fluids were ordered. Potassium 3.2 magnesium pending, potassium chloride ordered by mouth. The [facility] hiatric counselors evaluated the patient and felt that based on the rhabdomyolysis the patient would best be observed and admitted to the hospital under medical service and treated prior to psychiatric disposition or admission. Based on the patient's reported suicide attempt, Effexor ingestion, rha bdomyolysis, and hypokalemia, I also thought it would be appropriate to admit the patient to the hospital. He is agreeable and appears to be stable. I discussed the case with the hospitalist on-call who has excepted the patient to his care. - Lab Data Lab results reviewed: Yes I reviewed the patient's lab results. Result diagrams: 01/25/19 17:04 01/25/19 17:04 Lab Results 01/25/19 01/25/19 01/25/19 Range/Units 17:04 17:04 17:04 WBC 11.1 (4.3-11.1) K/mcL RBC 4.94 (4.19-5.50) M/mcL Hgb 14.7 (12.9-16.9) g/dL Hct 42.8 (37.5-50.1) % MCV 86.6 (83.0-100.0) fL MCH 29.8 (28.0-33.3) pg MCHC 34.3 (31.6-35.5) g/dL RDW 12.7 (11.5-14.5) % Plt Count 315 (140-400) K/mcL MPV 9.5 (9.4-12.4) fL Immature Gran % 0.4 (0-4) % Seg Neutrophils % 66.9 % Lymphocytes % 21.1 % Monocytes % 8.4 % Eosinophils % 2.6 % Basophils % 0.6 % Neutrophils # 7.4 (1.6-8.9) K/mcL Lymphocytes # 2.3 (0.6-4.6) K/mcL Monocytes # 0.9 (0.0-1.3) K/mcL Eosinophils # 0.3 (0.0-0.6) K/mcL Basophils # 0.1 (0.0-0.2) K/mcL Sodium 139 (136-145) mEq/L Potassium 3.2 L (3.5-5.1) mEq/L Chloride 100 (98-107) mEq/L Carbon Dioxide 28 (23-29) mEq/L BUN 15 (6-20) mg/dL Creatinine 0.93 (0.70-1.30) mg/dL Est GFR ( Amer) > 60 (> 60) Est GFR (Non-Af Amer) > 60 (> 60) BUN/Creatinine Ratio 16 (6-26) Glucose 89 (70-105) mg/dL Calculated Osmolality 288 (280-300) Calcium 9.4 (8.6-10.3) mg/dL Magnesium 2.2 (1.6-2.6) mg/dL Total Bilirubin 0.8 (0.3-1.0) mg/dL Direct Bilirubin 0.2 (0.0-0.2) mg/dL Indirect Bilirubin 0.6 (0.0-1.2) mg/dL AST 55 H (13-39) Units/L ALT 23 (7-52) Units/L Alkaline Phosphatase 54 (34-104) Units/L Creatine Kinase 3193 H (30-223) Units/L Serum Total Protein 7.2 (6.4-8.9) g/dL Albumin 4.6 (3.5-5.7) g/dL Globulin 2.6 (2.4-3.5) g/dL Albumin/Globulin Ratio 1.8 (1.1-2.2) Urine Color (Yellow) Urine Clarity (Clear) Urine pH (5.0-8.0) pH Units Ur Specific [place] (1.010-1.025) Urine Protein (Neg-Trace) mg/dL Urine Glucose (UA) (Normal) mg/dL Urine Ketones (Negative) mg/dL Urine Blood (Negative) Urine Nitrite (Negative) Urine Bilirubin (Negative) Urine Urobilinogen (Normal) mg/dL Ur Leukocyte Esterase (Negative) Salicylates < 2.5 L (15.0-30.0) mg/dL Urine Opiates Screen (Xkesuf=195) ng/mL Ur Buprenorphine Scrn (Cutoff=5) ng/mL Acetaminophen < 10 L (10-20) mcg/mL Ur Barbiturates Screen (Pjqmgt=247) ng/mL Ur Phencyclidine Scrn (Cutoff=25) ng/mL Ur Amphetamines Screen (Mhzdhl=1480) ng/mL U Benzodiazepines Scrn (Mkypou=242) ng/mL Urine Cocaine Screen (Cutoff= 300) ng/mL U Marijuana (THC) Screen (Cutoff = 50) ng/mL Ur Drug Screen Interp Ethyl Alcohol < 10 (Less than 10) mg/dL 01/25/19 01/25/19 Range/Units 20:00 20:00 WBC (4.3-11.1) K/mcL RBC (4.19-5.50) M/mcL Hgb (12.9-16.9) g/dL Hct (37.5-50.1) % MCV (83.0-100.0) fL MCH (28.0-33.3) pg MCHC (31.6-35.5) g/dL RDW (11.5-14.5) % Plt Count (140-400) K/mcL MPV (9.4-12.4) fL Immature Gran % (0-4) % Seg Neutrophils % % Lymphocytes % % Monocytes % % Eosinophils % % Basophils % % Neutrophils # (1.6-8.9) K/mcL Lymphocytes # (0.6-4.6) K/mcL Monocytes # (0.0-1.3) K/mcL Eosinophils # (0.0-0.6) K/mcL Basophils # (0.0-0.2) K/mcL Sodium (136-145) mEq/L Potassium (3.5-5.1) mEq/L Chloride (98-107) mEq/L Carbon Dioxide (23-29) mEq/L BUN (6-20) mg/dL Creatinine (0.70-1.30) mg/dL Est GFR ( Amer) (> 60) Est GFR (Non-Af Amer) (> 60) BUN/Creatinine Ratio (6-26) Glucose (70-105) mg/dL Calculated Osmolality (280-300) Calcium (8.6-10.3) mg/dL Magnesium (1.6-2.6) mg/dL Total Bilirubin (0.3-1.0) mg/dL Direct Bilirubin (0.0-0.2) mg/dL Indirect Bilirubin (0.0-1.2) mg/dL AST (13-39) Units/L ALT (7-52) Units/L Alkaline Phosphatase (34-104) Units/L Creatine Kinase (30-223) Units/L Serum Total Protein (6.4-8.9) g/dL Albumin (3.5-5.7) g/dL Globulin (2.4-3.5) g/dL Albumin/Globulin Ratio (1.1-2.2) Urine Color Yellow (Yellow) Urine Clarity Clear (Clear) Urine pH 6.0 (5.0-8.0) pH Units Ur Specific [place] 1.014 (1.010-1.025) Urine Protein Negative (Neg-Trace) mg/dL Urine Glucose (UA) Normal (Normal) mg/dL Urine Ketones Negative (Negative) mg/dL Urine Blood Negative (Negative) Urine Nitrite Negative (Negative) Urine Bilirubin Negative (Negative) Urine Urobilinogen Normal (Normal) mg/dL Ur Leukocyte Esterase Negative (Negative) Salicylates (15.0-30.0) mg/dL Urine Opiates Screen Negative (Ligecn=401) ng/mL Ur Buprenorphine Scrn Negative (Cutoff=5) ng/mL Acetaminophen (10-20) mcg/mL Ur Barbiturates Screen Negative (Xjhnce=904) ng/mL Ur Phencyclidine Scrn Negative (Cutoff=25) ng/mL Ur Amphetamines Screen Negative (Vmnpft=4365) ng/mL U Benzodiazepines Scrn Negative (Gwnboz=844) ng/mL Urine Cocaine Screen Negative (Cutoff= 300) ng/mL U Marijuana (THC) Screen Positive H (Cutoff = 50) ng/mL Ur Drug Screen Interp See Below Ethyl Alcohol (Less than 10) mg/dL
[2019-01-25 17:57] LABS: Basophils # 0.1 K/mcL (0.0-0.2); Basophils % 0.6 %; Eosinophils # 0.3 K/mcL (0.0-0.6); Eosinophils % 2.6 %; Hematocrit 42.8 % (37.5-50.1); Hemoglobin 14.7 g/dL (12.9-16.9); Immature Granulocytes % 0.4 % (0-4); Lymphocytes # 2.3 K/mcL (0.6-4.6); Lymphocytes % 21.1 %; Mean Corpuscular HGB Conc 34.3 g/dL (31.6-35.5); Mean Corpuscular Hemoglobin 29.8 pg (28.0-33.3); Mean Corpuscular Volume 86.6 fL (83.0-100.0); Mean Platelet Volume 9.5 fL (9.4-12.4); Monocytes # 0.9 K/mcL (0.0-1.3); Monocytes % 8.4 %; Neutrophils # 7.4 K/mcL (1.6-8.9); Platelet Count 315 K/mcL (140-400); Red Blood Count 4.94 M/mcL (4.19-5.50); Red Cell Distribution Width 12.7 % (11.5-14.5); Segmented Neutrophils % 66.9 %; White Blood Count 11.1 K/mcL (4.3-11.1)
[2019-01-25 18:14] LABS: Acetaminophen < 10 mcg/mL (10-20); Alanine Aminotransferase 23 Units/L (7-52); Albumin 4.6 g/dL (3.5-5.7); Albumin/Globulin Ratio 1.8 (1.1-2.2); Alkaline Phosphatase 54 Units/L (34-104); Aspartate Amino Transferase 55 Units/L (13-39); BUN/Creatinine Ratio 16 (6-26); Bilirubin,Direct 0.2 mg/dL (0.0-0.2); Bilirubin,Indirect 0.6 mg/dL (0.0-1.2); Bilirubin,Total 0.8 mg/dL (0.3-1.0); Blood Urea Nitrogen 15 mg/dL (6-20); Calcium 9.4 mg/dL (8.6-10.3); Carbon Dioxide 28 mEq/L (23-29); Chloride 100 mEq/L (98-107); Ethanol < 10 mg/dL (Less than 10); Globulin 2.6 g/dL (2.4-3.5); Glucose 89 mg/dL (70-105); Osmolality,Calculated 288 (280-300); Potassium 3.2 mEq/L (3.5-5.1); Salicylate < 2.5 mg/dL (15.0-30.0); Sodium 139 mEq/L (136-145); Total Protein 7.2 g/dL (6.4-8.9); eGFR For African Americans > 60 (> 60); eGFR For Non-African Americans > 60 (> 60)
[2019-01-25] MEDS ORDERED: 0.9 % Sodium Chloride 1,000 ML IVC ONE ×3 (18:37→23:30)
[2019-01-25 20:13] LABS: Bilirubin,Urine Negative (Negative); Blood,Urine Negative (Negative); Clarity,Urine Clear (Clear); Color,Urine Yellow (Yellow); Glucose,Urine (UA) Normal (Normal); Ketones,Urine Negative (Negative); Leukocyte Esterase,Urine Negative (Negative); Nitrite,Urine Negative (Negative); Protein,Urine Negative (Neg-Trace); Specific Gravity,Urine 1.014 (1.010-1.025); Urobilinogen,Urine Normal (Normal)
[2019-01-25 20:23] LABS: Amphetamine Screen,Urine Negative ng/mL (Cutoff=1000); Barbiturate Screen,Urine Negative ng/mL (Cutoff=200); Benzodiazepines Screen,Urine Negative ng/mL (Cutoff=200); Cannabinoid Screen,Urine Positive ng/mL (Cutoff = 50); Cocaine Screen,Urine Negative ng/mL (Cutoff= 300); Opiate Screen,Urine Negative ng/mL (Cutoff=300); Phencyclidine Screen,Urine Negative ng/mL (Cutoff=25)
[2019-01-25 21:01] LABS: Magnesium 2.2 mg/dL (1.6-2.6)
[2019-01-25] MEDS ORDERED: Potassium Chloride Elixir 20 MEQ/15 ML UDC PO ONE (21:07)
[2019-01-25] MEDS ORDERED: Naloxone 0.4 MG/ML INJ IVP PRN (23:19)
--- NOTE | 2019-01-25 23:32 | Internal Med History&Physical ---
Date of Encounter: 01/25/19 Time of Encounter: 23:15 Internal Medicine - H&P: HPI Chief complaint: Rhabdomyolysis, suicide attempt Admitted From: Emergency Dept Plans for Post Hospital Care: Home History of present illness: Mr. Richard is a 33 year old male Patient presented to the emergency department after a suicide attempt. He attempted to overdose on Effexor, 75 mg 10 tablets approximately 24 hours ago. This was provoked by his leaving him. He ended up at the [facility] where he was found to have continued depressive symptoms and contact current suicidal ideation. He has auditory hallucinations with a male voice telling him to "end it." He was pink slipped and referred to the emergency department where he was then freely accepted to the [facility] psychiatric service. He requires medical clearance prior to this. In the emergency department patient's initial vital signs were within normal limits CBC unremarkable BMP notable for potassium of 3.2 Liver function tests: Elevated AST at 55, ALT 23, alkaline phosphatase 54. Creatine kinase 3193 Urinalysis negative for infection Urine tox screen positive for marijuana Blood alcohol level undetectable EKG: Normal sinus rhythm, rate 68, QTC 433 no ischemic changes Emergency department notified poison control, who recommended EKG, routine labs and observation. He is found to have rhabdomyolysis and low potassium. Psychia tric team evaluated the patient and requested medical clearance prior to their admission. He was given 2 L of IV fluids and oral potassium. He was admitted to the hospital for further observation. Upon my evaluation, patient is resting comfortably in the hospital bed in no acute distress. Denies chest pain, abdominal pain, nausea, vomiting, diarrhea and constipation. He has a half pack of cigarettes per day smoker, declines nicotine patch. He denies alcohol use but occasional use of marijuana. He has never attempted suicide previously. He has no other medical history. Denies contributing family medical history. Past Med Surg Social Fam HX - Past Medical History Medical history: GERD, myocardial infarction Psychiatric history: no psych history - Past Surgical History Surgical History: appendectomy, cholecystectomy, orthopedic, other Additional surgical history: Labrum repair in the L shoulder twice - Social History Smoking Status: Current every day smoker Smokeless Tobacco Status: No Alcohol use: none Drug use: none, marijuana - Family History Mother Living Status: Still Living Hx Family Cancer: Yes (Lung, Breast, Colorectal cancer) Internal Medicine - H&P: Meds No Known Home Drugs 01/25/19 [History] Allergy/AdvReac Type Severity Reaction Status Date / Time dicyclomine [From [place]] Allergy Anaphylaxis Verified 01/25/19 22:19 hydrocodone [From [place]] Allergy Itching Verified 01/25/19 22:19 morphine Allergy Difficulty Verified 01/25/19 22:19 Breathing oxycodone [From Percocet] Allergy Hives Verified 01/25/19 22:19 All Systems PM: A 10-system review of systems was performed and is negative for pertinent findings except as documented above in the HPI. - Constitutional Vitals: Temp Pulse Resp BP Pulse Ox 97.7 F 69 16 133/81 97 01/25/19 22:43 01/25/19 22:43 01/25/19 22:43 01/25/19 22:43 01/25/19 22:43 General appearance: Present: cooperative, A&O X 3, pleasant, no acute distress, answers questions appropriately Exam: - - Head Head exam: Present: normal inspection - Eye Eye exam: Present: EOMI, normal appearance - Respiratory Respiratory exam: Present: CTAB. Absent: rales, respiratory distress, rhonchi, wheezes - Cardiovascular Cardiovascular exam: Present: RRR. Absent: diastolic murmur, systolic murmur - GI/Abdominal GI/Abdominal exam: Present: normal bowel sounds, soft. Absent: tenderness - Extremities Exam Extremities exam: Present: warm, radial pulses palpable and symmetrical. Absent: calf tenderness, pedal edema, tenderness - Neurological Exam Neurological exam: Present: no focal deficits, strengths equal and symetr throughout. Absent: motor sensory deficit, facial droop, speech deficit - Psychiatric Psychiatric exam: Present: depressed, flat affect, suicidal ideation - Skin Skin exam: Present: abrasion, dry, normal color, warm Additional comments: Left hand abrasions over the knuckles secondary to punching object. Full range of motion in fingers, patient denies pain Internal Med - H&P Results - Labs CBC & Chem 7: 01/25/19 17:04 01/25/19 17:04 Labs: Short CBC 01/25/19 Range/Units 17:04 WBC 11.1 (4.3-11.1) K/mcL Hgb 14.7 (12.9-16.9) g/dL Hct 42.8 (37.5-50.1) % Plt Count 315 (140-400) K/mcL Neutrophils # 7.4 (1.6-8.9) K/mcL BMP 01/25/19 17:04 Sodium 139 Potassium 3.2 L Chloride 100 Carbon Dioxide 28 BUN 15 Creatinine 0.93 Glucose 89 Calcium 9.4 Liver Function 01/25/19 Range/Units 17:04 Total Bilirubin 0.8 (0.3-1.0) mg/dL Direct Bilirubin 0.2 (0.0-0.2) mg/dL AST 55 H (13-39) Units/L ALT 23 (7-52) Units/L Alkaline Phosphatase 54 (34-104) Units/L Albumin 4.6 (3.5-5.7) g/dL Urine 01/25/19 Range/Units 20:00 Urine Color Yellow (Yellow) Urine Clarity Clear (Clear) Urine pH 6.0 (5.0-8.0) pH Units Ur Specific [place] 1.014 (1.010-1.025) Urine Protein Negative (Neg-Trace) mg/dL Urine Glucose (UA) Normal (Normal) mg/dL - Assessment and Plan (1) Rhabdomyolysis Current Visit: Yes Status: Acute Assessment and plan: Likely exacerbated by Effexor intoxication though cardiac complications are more common. Initial CK level was 3193. He has received 2 L of IV fluids. Kidney function and urinalysis actually within normal limits. Continue to monitor CK Continue IV fluid hydration If not improving, consider nephrology consultation and retroperitoneal ultrasound. Qualifiers: Rhabdomyolysis type: non-traumatic Qualified Code(s): M62.82 - Rhabdomyolysis (2) Suicide attempt by drug overdose Current Visit: Yes Status: Acute Assessment and plan: Patient pink slipped. Psychiatry consult (3) Elevated LFTs Current Visit: No Status: Resolved Assessment and plan: Patient has had mild elevation of LFTs in the past, hepatitis panel ordered in 2016 negative. Patient denies drug history and significant alcohol use. Repeat a.m. labs Continue to monitor (4) DVT prophylaxis Current Visit: No Status: Acute Assessment and plan: SCDs - Time Spent With Patient Total time spent is greater than 50% in coordination of care (as documented) at patient's floor/unit and/or counseling patient: Greater than 35 minutes
[2019-01-26] MEDS ORDERED: 0.9 % Sodium Chloride 1,000 ML IVC ONE (00:30)
[2019-01-26 07:52] LABS: Hematocrit 41.5 % (37.5-50.1); Hemoglobin 14.2 g/dL (12.9-16.9); Mean Corpuscular HGB Conc 34.2 g/dL (31.6-35.5); Mean Corpuscular Hemoglobin 30.1 pg (28.0-33.3); Mean Corpuscular Volume 88.1 fL (83.0-100.0); Mean Platelet Volume 9.3 fL (9.4-12.4); Platelet Count 288 K/mcL (140-400); Red Blood Count 4.71 M/mcL (4.19-5.50); Red Cell Distribution Width 12.7 % (11.5-14.5); White Blood Count 7.4 K/mcL (4.3-11.1)
--- NOTE | 2019-01-26 08:34 | Electrocardiograph Report ---
[facility] Test Date: 2019-01-25 Pat Name: Toñito Richard Department: [id number] Room: 3A22 Gender: M [employer] Signalman: : 1985 Requested By: Ousmane Valenzuela Order Number: [id number] Reading MD: Melanie Leo Measurements Intervals [place] Rate: 68 P: 87 NM: 134 QRS: 77 QRSD: 101 T: 57 QT: 407 QTc: 433 Interpretive Statements Sinus rhythm Right atrial enlargement Electronically Signed On 01-26-2019 8:32:11 EDT by Melanie Leo
[2019-01-26 08:36] LABS: Alanine Aminotransferase 24 Units/L (7-52); Albumin 4.3 g/dL (3.5-5.7); Albumin/Globulin Ratio 1.9 (1.1-2.2); Alkaline Phosphatase 52 Units/L (34-104); Aspartate Amino Transferase 51 Units/L (13-39); BUN/Creatinine Ratio 11 (6-26); Blood Urea Nitrogen 9 mg/dL (6-20); Calcium 8.9 mg/dL (8.6-10.3); Carbon Dioxide 24 mEq/L (23-29); Chloride 107 mEq/L (98-107); Creatine Kinase 2784 Units/L (30-223); Globulin 2.3 g/dL (2.4-3.5); Glucose 85 mg/dL (70-105); Osmolality,Calculated 292 (280-300); Phosphorous 2.2 mg/dL (2.7-4.5); Sodium 142 mEq/L (136-145); Total Protein 6.6 g/dL (6.4-8.9); eGFR For African Americans > 60 (> 60); eGFR For Non-African Americans > 60 (> 60)
--- NOTE | 2019-01-26 09:19 | Internal Med Progress Note ---
<Hardik Strange M - Last Filed: 01/26/19 15:42> Hospitalist Progress Note - Encounter Date of Encounter: 01/26/19 Time of Encounter: 09:00 - Subjective Interval History: Patient seen and examined at bedside this morning with sitter in the room. Patient has little to contribute to conversation but does answer direct questions and cooperate with exam. Patient stated he was unaware of the plan of care and why he was here, was informed that he did develop rhabdomyolysis and needed to be medically cleared before he could be assessed by psychiatry. Patient was agreeable to this plan of care. Denied chest pain, shortness of breath, dysuria, decreased urine output. Denies change in color of urine. No new complaints at this time - Exam Vitals: Temp Pulse Resp BP Pulse Ox 98.1 F 65 16 133/79 98 01/26/19 08:18 01/26/19 08:18 01/26/19 03:21 01/26/19 08:18 01/26/19 08:18 Exam: Gen: AXO x3, NAD Head: Atraumatic, normocephalic Eyes: EOMI, Anicteric ENT: oropharynx clear, MMM CV: RRR, no mumurs gallops rubs Resp: CTAB, no wheezes rales rhonchi Abd: Soft, nontender, nonrigid Ext: no rash, no cyanosis, no clubbing - Assessment and Plan (1) Rhabdomyolysis Current Visit: Yes Status: Acute Assessment and Plan: Creatinine kinase 3193 on admission Secondary to Effexor dose Patient reported taking 10 75 mg pills Patient was started on IV fluids and given 2 L bolus Kidney function has been normal Urinalysis does not show myoglobinuria Patient does not report muscle cramps Reading kinase did decrease temporarily this morning however repeat has since gone back up Plan: -Continue to trend CK -Continue maintenance IV fluids -Consider bicarbonate for alkalinization of urine (2) Suicide attempt by drug overdose Current Visit: Yes Status: Acute Assessment and Plan: Patient did attempt to commit suicide secondary to his leaving him Patient currently has a pink slip with sitter in the room Psychiatry has been consulted, will admit to 1A pending medical clearance (3) Elevated LFTs Current Visit: No Status: Resolved Assessment and Plan: Patient has not elevation of AST Total bilirubin, alkaline phosphatase, ALT within normal limits Patient denies drug use Hepatitis panel 2016 was negative (4) DVT prophylaxis Current Visit: No Status: Acute Assessment and Plan: Intermittent Pneumatic Compression Device DVT Prophylaxis: scd - Time Spent with Patient Total time spent is greater than 50% in coordination of care (as documented) at patient's floor/unit and/or counseling patient: Internal Medicine: Result - Labs CBC & Chem 7: 01/26/19 07:29 01/26/19 07:29 Labs: Short CBC 01/25/19 01/26/19 Range/Units 17:04 07:29 WBC 11.1 7.4 (4.3-11.1) K/mcL Hgb 14.7 14.2 (12.9-16.9) g/dL Hct 42.8 41.5 (37.5-50.1) % Plt Count 315 288 (140-400) K/mcL Neutrophils # 7.4 (1.6-8.9) K/mcL BMP 01/25/19 01/26/19 17:04 07:29 Sodium 139 142 Potassium 3.2 L 4.0 Chloride 100 107 Carbon Dioxide 28 24 BUN 15 9 Creatinine 0.93 0.79 Glucose 89 85 Calcium 9.4 8.9 Liver Function 01/25/19 01/26/19 Range/Units 17:04 07:29 Total Bilirubin 0.8 1.0 (0.3-1.0) mg/dL Direct Bilirubin 0.2 (0.0-0.2) mg/dL AST 55 H 51 H (13-39) Units/L ALT 23 24 (7-52) Units/L Alkaline Phosphatase 54 52 (34-104) Units/L Albumin 4.6 4.3 (3.5-5.7) g/dL Urine 01/25/19 Range/Units 20:00 Urine Color Yellow (Yellow) Urine Clarity Clear (Clear) Urine pH 6.0 (5.0-8.0) pH Units Ur Specific [place] 1.014 (1.010-1.025) Urine Protein Negative (Neg-Trace) mg/dL Urine Glucose (UA) Normal (Normal) mg/dL Consult Discharge Plan - Plan Referrals: Milka Ardon MD [Non-Partnered Physician] - <Suhail Mercedes - Last Filed: 01/26/19 17:35> Hospitalist Progress Note - Encounter Date of Encounter: 01/26/19 - Exam Vitals: Temp Pulse Resp BP Pulse Ox 98.2 F 68 16 120/66 99 01/26/19 11:55 01/26/19 11:55 01/26/19 11:55 01/26/19 11:55 01/26/19 11:55 - Assessment and Plan (1) DVT prophylaxis Current Visit: No Status: Acute (2) Elevated LFTs Current Visit: No Status: Resolved (3) Suicide attempt by drug overdose Current Visit: Yes Status: Acute (4) Rhabdomyolysis Current Visit: Yes Status: Acute (5) Depression Current Visit: Yes Status: Acute (6) Tobacco abuse Current Visit: Yes Status: Chronic - Time Spent with Patient Total time spent is greater than 50% in coordination of care (as documented) at patient's floor/unit and/or counseling patient: Internal Medicine: Result - Labs CBC & Chem 7: 01/26/19 07:29 01/26/19 07:29 Labs: Short CBC 01/25/19 01/26/19 Range/Units 17:04 07:29 WBC 11.1 7.4 (4.3-11.1) K/mcL Hgb 14.7 14.2 (12.9-16.9) g/dL Hct 42.8 41.5 (37.5-50.1) % Plt Count 315 288 (140-400) K/mcL Neutrophils # 7.4 (1.6-8.9) K/mcL BMP 01/25/19 01/26/19 17:04 07:29 Sodium 139 142 Potassium 3.2 L 4.0 Chloride 100 107 Carbon Dioxide 28 24 BUN 15 9 Creatinine 0.93 0.79 Glucose 89 85 Calcium 9.4 8.9 Liver Function 01/25/19 01/26/19 Range/Units 17:04 07:29 Total Bilirubin 0.8 1.0 (0.3-1.0) mg/dL Direct Bilirubin 0.2 (0.0-0.2) mg/dL AST 55 H 51 H (13-39) Units/L ALT 23 24 (7-52) Units/L Alkaline Phosphatase 54 52 (34-104) Units/L Albumin 4.6 4.3 (3.5-5.7) g/dL Urine 01/25/19 Range/Units 20:00 Urine Color Yellow (Yellow) Urine Clarity Clear (Clear) Urine pH 6.0 (5.0-8.0) pH Units Ur Specific [place] 1.014 (1.010-1.025) Urine Protein Negative (Neg-Trace) mg/dL Urine Glucose (UA) Normal (Normal) mg/dL - Attending Attestation I examined this patient and my medical decision-making was reviewed with the Resident Physician on 01/26/19. I agree with the documented findings, dispos ition and treatment plan as described except to the extent set forth below. Mr Richard is currently hospitalized for OD of Effexor. He remains moderate to high risk due to potential for worsening clinical status. Mr Richard just awoke for lunch. He is very evasive and despondent. No fever or chills. No pain. Exam: Alert. NC. Comfortable. Mucus membranes dry. Heart not tachy. No wheeze. Abd soft. Moves all extremities. No edema. CPK still elevated but renal function normal. Will continue IV fluids. Recheck in AM. __ <Hardik Strange - Last Filed: 01/26/19 15:42> (1) Rhabdomyolysis Qualifiers: Rhabdomyolysis type: non-traumatic Qualified Code(s): M62.82 - Rhabdomyolysis <Suhail Mercedes - Last Filed: 01/26/19 17:35> (4) Rhabdomyolysis Qualifiers: Rhabdomyolysis type: non-traumatic Qualified Code(s): M62.82 - Rhabdomyolysis (5) Depression Qualifiers: Depression Type: major depressive disorder Major depression recurrence: recurrent Active/Remission status: currently active Major depression episode severity: severe Psychotic features: without psychotic features Qualified Code(s): F33.2 - Major depressive disorder, recurrent severe without psychotic features
[2019-01-26] MEDS ORDERED: 0.9 % Sodium Chloride 1,000 ML ONE (12:11)
[2019-01-26] MEDS: 0.9 % Sodium Chloride 1,000 ML IVC SCH ×2 (13:03→22:01)
[2019-01-26] MEDS ORDERED: hydrOXYzine pamoate 25 MG CAPSULE PO ONE (13:30)
--- NOTE | 2019-01-26 17:03 | Consult Note ---
Date of Encounter: 01/26/19 Time of Encounter: 16:00 Assessment & Recommendation (1) Depression Current visit: Yes Status: Acute Assessment & Recommendation: Recommend inpatient psychiatric hospitalization pending medical stabilization. No medication recommendations at this time due to recent overdose. Will make adjustments once patient accepted to psychiatric service. From a psychiatric perspective patient would continue to benefit from a sitter and pink slip at this time. Qualifiers: Depression Type: major depressive disorder Major depression recurrence: recurrent Active/Remission status: currently active Major depression episode severity: severe Psychotic features: without psychotic features Qualified Code(s): F33.2 - Major depressive disorder, recurrent severe without psychotic features (2) Suicide attempt by drug overdose Current visit: Yes Status: Acute History of Present Illness Patient: new to practice Requesting Physician: Suhail Mercedes DO Reason for consult: Overdose History of present illness: Mr. Richard is a 33 year old male admitted to medical following an overdose of 10 tablets of 75mg Effexor. He reports his left him on Thursday and took the kids "somewhere I didn't want them to go." He would not specify why but he stated that after his took the kids he decided to end his life. He admits to a history of depression and "angry outbursts." He denies ever becoming physical with his or children when anger but admits to becoming physical with "the bunch" and objects in the room with him. When asked if he was treated with anything in the past that helps he said "Ativan made me feel like my old self." He denies SI or HI today. He further denies AH or VH. CC: Suhail Mercedes DO Past Med Surg Social Fam HX - Past Medical History Medical history: GERD, myocardial infarction - Past Psychiatric History Psychiatric history: Reports: depression. Denies: prior suicide attempt, previous psychiatric hospitalization Past psychiatric history details: Mr. Richard admits to previous diagnosis of depression. He denies any previous psychiatric hospitalizations. Family psychiatric history: No Family History of Suicide: None - Past Surgical History Surgical History: appendectomy, cholecystectomy, orthopedic, other - Social History Smoking Status: Current every day smoker Smokeless Tobacco Status: No Alcohol use: none Drug use: none, marijuana Occupational status: employed Current living situation: Home - Independent Activity Level: Independent ambulation Recent Out of Country Travel Within the Last 8 Weeks: No Exposure or Possible Exposure to Illness During Travel: No - Family History Mother Living Status: Still Living Hx Family Cancer: Yes (Lung, Breast, Colorectal cancer) Medications & Allergies No Known Home Drugs 01/25/19 [History] Allergy/AdvReac Type Severity Reaction Status Date / Time dicyclomine [From Bentyl] Allergy Anaphylaxis Verified 01/25/19 22:19 hydrocodone [From [place]] Allergy Itching Verified 01/25/19 22:19 morphine Allergy Difficulty Verified 01/25/19 22:19 Breathing oxycodone [From Percocet] Allergy Hives Verified 01/25/19 22:19 Review of Systems Psychiatric: Reports: depression, suicidal ideation, hopelessness. Denies: homicidal ideation, auditory hallucinations, visual hallucinations Psychiatry Exam - Constitutional Vitals: Temp Pulse Resp BP Pulse Ox 98.2 F 68 16 120/66 99 01/26/19 11:55 01/26/19 11:55 01/26/19 11:55 01/26/19 11:55 01/26/19 11:55 General appearance: age & developmentally appropriate, unkempt - Musculoskeletal Gait: normal Station: relaxed Strength & Tone: normal for patient - Psychiatric Patient Orientation: Yes Person, Yes Time, Yes Place, Yes Circumstance Level of alertness: Alert Behavior: cooperative, tearful, guarded Psychomotor activity: Normal Eye Contact: Maintains Eye Contact Mood Description: Depressed Patient description of mood: "just want to get out of here." Affect description: blunted, tearful, dysphoric Speech Volume: Normal Speech pattern: normal rate, normal rhythm, normal tone, appropriate Language & Vocabulary: consistent with education Thought Process: Intact, Logical, Linear, Goal Oriented Thought Content: Yes Intact, No Suicidal ideation, No Homicidal ideation, No Paranoid delusion, Yes Guilt Perceptual Disturbances: No Reacting to internal stimuli, No Auditory hallucinations, No Visual hallucinations, No Tactile hallucinations Attention Span Ability: Capable of Focused Attention, Capable of Sustained Attention Memory Description: Grossly Intact Patient Reliability: Reliable Historian Fund of knowledge: Yes average Intelligence Estimate: Average Judgment: Poor Insight: Partial Results - Drug Levels and Toxicology Drug Levels and Toxicology: Drug Levels and Toxicity 01/25/19 01/25/19 17:04 20:00 Urine Opiates Screen Negative Acetaminophen < 10 L Ur Barbiturates Screen Negative Ur Phencyclidine Scrn Negative Ur Amphetamines Screen Negative U Benzodiazepines Scrn Negative Urine Cocaine Screen Negative U Marijuana (THC) Screen Positive H Ethyl Alcohol < 10 - Labs Labs: Laboratory Last Values WBC 7.4 K/mcL (4.3-11.1) 01/26/19 07:29 RBC 4.71 M/mcL (4.19-5.50) 01/26/19 07:29 Hgb 14.2 g/dL (12.9-16.9) 01/26/19 07:29 Hct 41.5 % (37.5-50.1) 01/26/19 07:29 MCV 88.1 fL (83.0-100.0) 01/26/19 07:29 MCH 30.1 pg (28.0-33.3) 01/26/19 07:29 MCHC 34.2 g/dL (31.6-35.5) 01/26/19 07:29 RDW 12.7 % (11.5-14.5) 01/26/19 07:29 Plt Count 288 K/mcL (140-400) 01/26/19 07:29 MPV 9.3 fL (9.4-12.4) L 01/26/19 07:29 Immature Gran % 0.4 % (0-4) 01/25/19 17:04 Seg Neutrophils % 66.9 % 01/25/19 17:04 Lymphocytes % 21.1 % 01/25/19 17:04 Monocytes % 8.4 % 01/25/19 17:04 Eosinophils % 2.6 % 01/25/19 17:04 Basophils % 0.6 % 01/25/19 17:04 Neutrophils # 7.4 K/mcL (1.6-8.9) 01/25/19 17:04 Lymphocytes # 2.3 K/mcL (0.6-4.6) 01/25/19 17:04 Monocytes # 0.9 K/mcL (0.0-1.3) 01/25/19 17:04 Eosinophils # 0.3 K/mcL (0.0-0.6) 01/25/19 17:04 Basophils # 0.1 K/mcL (0.0-0.2) 01/25/19 17:04 Sodium 142 mEq/L (136-145) 01/26/19 07:29 Potassium 4.0 mEq/L (3.5-5.1) 01/26/19 07:29 Chloride 107 mEq/L (98-107) 01/26/19 07:29 Carbon Dioxide 24 mEq/L (23-29) 01/26/19 07:29 BUN 9 mg/dL (6-20) 01/26/19 07:29 Creatinine 0.79 mg/dL (0.70-1.30) 01/26/19 07:29 Est GFR ( Amer) > 60 (> 60) 01/26/19 07:29 Est GFR (Non-Af Amer) > 60 (> 60) 01/26/19 07:29 BUN/Creatinine Ratio 11 (6-26) 01/26/19 07:29 Glucose 85 mg/dL (70-105) 01/26/19 07:29 Calculated Osmolality 292 (280-300) 01/26/19 07:29 Calcium 8.9 mg/dL (8.6-10.3) 01/26/19 07:29 Phosphorus 2.2 mg/dL (2.7-4.5) L 01/26/19 07:29 Magnesium 2.2 mg/dL (1.6-2.6) 01/25/19 17:04 Total Bilirubin 1.0 mg/dL (0.3-1.0) 01/26/19 07:29 Direct Bilirubin 0.2 mg/dL (0.0-0.2) 01/25/19 17:04 Indirect Bilirubin 0.6 mg/dL (0.0-1.2) 01/25/19 17:04 AST 51 Units/L (13-39) H 01/26/19 07:29 ALT 24 Units/L (7-52) 01/26/19 07:29 Alkaline Phosphatase 52 Units/L (34-104) 01/26/19 07:29 Creatine Kinase 2784 Units/L (30-223) H 01/26/19 07:29 Serum Total Protein 6.6 g/dL (6.4-8.9) 01/26/19 07:29 Albumin 4.3 g/dL (3.5-5.7) 01/26/19 07:29 Globulin 2.3 g/dL (2.4-3.5) L 01/26/19 07:29 Albumin/Globulin Ratio 1.9 (1.1-2.2) 01/26/19 07:29 Urine Color Yellow (Yellow) 01/25/19 20:00 Urine Clarity Clear (Clear) 01/25/19 20:00 Urine pH 6.0 pH Units (5.0-8.0) 01/25/19 20:00 Ur Specific [place] 1.014 (1.010-1.025) 01/25/19 20:00 Urine Protein Negative mg/dL (Neg-Trace) 01/25/19 20:00 Urine Glucose (UA) Normal mg/dL (Normal) 01/25/19 20:00 Urine Ketones Negative mg/dL (Negative) 01/25/19 20:00 Urine Blood Negative (Negative) 01/25/19 20:00 Urine Nitrite Negative (Negative) 01/25/19 20:00 Urine Bilirubin Negative (Negative) 01/25/19 20:00 Urine Urobilinogen Normal mg/dL (Normal) 01/25/19 20:00 Ur Leukocyte Esterase Negative (Negative) 01/25/19 20:00 Salicylates < 2.5 mg/dL (15.0-30.0) L 01/25/19 17:04 Urine Opiates Screen Negative ng/mL (Mtxjaq=296) 01/25/19 20:00 Ur Buprenorphine Scrn Negative ng/mL (Cutoff=5) 01/25/19 20:00 Acetaminophen < 10 mcg/mL (10-20) L 01/25/19 17:04 Ur Barbiturates Screen Negative ng/mL (Cdumfy=440) 01/25/19 20:00 Ur Phencyclidine Scrn Negative ng/mL (Cutoff=25) 01/25/19 20:00 Ur Amphetamines Screen Negative ng/mL (Golbnu=4683) 01/25/19 20:00 U Benzodiazepines Scrn Negative ng/mL (Grauna=631) 01/25/19 20:00 Urine Cocaine Screen Negative ng/mL (Cutoff= 300) 01/25/19 20:00 U Marijuana (THC) Screen Positive ng/mL (Cutoff = 50) H 01/25/19 20:00 Ur Drug Screen Interp See Below 01/25/19 20:00 Ethyl Alcohol < 10 mg/dL (Less than 10) 01/25/19 17:04 Consult Discharge Plan - Plan Referrals: Milka Ardon MD [Non-Partnered Physician] - - Attending Attestation I examined this patient and my medical decision-making was reviewed with the Resident Physician. I agree with the documented findings, disposition and treatment plan as described except to the extent set forth below. Admit to inpatient psych once medically cleared.
[2019-01-27 05:09] LABS: BUN/Creatinine Ratio 12 (6-26); Blood Urea Nitrogen 11 mg/dL (6-20); Calcium 8.9 mg/dL (8.6-10.3); Carbon Dioxide 26 mEq/L (23-29); Chloride 108 mEq/L (98-107); Creatine Kinase 1553 Units/L (30-223); Glucose 94 mg/dL (70-105); Magnesium 1.9 mg/dL (1.6-2.6); Osmolality,Calculated 289 (280-300); Phosphorous 2.1 mg/dL (2.7-4.5); Potassium 3.8 mEq/L (3.5-5.1); Sodium 140 mEq/L (136-145); eGFR For African Americans > 60 (> 60); eGFR For Non-African Americans > 60 (> 60)
--- NOTE | 2019-01-27 07:19 | Internal Med Progress Note ---
<Hardik Strange - Last Filed: 01/27/19 11:21> Hospitalist Progress Note - Encounter Date of Encounter: 01/27/19 Time of Encounter: 09:00 - Subjective Interval History: Patient seen and examined at bedside this morning with sitter present. Denies any new or worsening complaints at this time. Appetite poor last night, good thi s morning. Still urinating adequately without color change. Denies any muscle cramps or aches now or overnight. States a desire to be transferred to but was informed that would not be possible until tomorrow when his labs have improved. - Exam Vitals: Temp Pulse Resp BP Pulse Ox 97.9 F 78 16 137/82 98 01/26/19 20:35 01/26/19 20:35 01/26/19 11:55 01/26/19 20:35 01/26/19 20:35 Exam: Gen: AXO x3, NAD Head: Atraumatic, normocephalic Eyes: EOMI, Anicteric ENT: oropharynx clear, MMM CV: RRR, no mumurs gallops rubs Resp: CTAB, no wheezes rales rhonchi Abd: Soft, nontender, nonrigid Ext: no rash, no cyanosis, no clubbing - Assessment and Plan (1) Rhabdomyolysis Current Visit: Yes Status: Acute Assessment and Plan: Patient presented with significantly elevated creatine kinase Initial reading greater than 3000, downtrending, rpt today 1553 Patient continues to deny signs or symptoms of rhabdomyolysis at this time Kidney function remains intact, no muscle cramps/aches, no gross hematuria Plan: -We will continue IV fluids -We will continue to trend creatine kinase -We will continue to monitor kidney function (2) Suicide attempt by drug overdose Current Visit: Yes Status: Acute Assessment and Plan: Patient attempted suicide secondary to breakup with his Patient consumed ten 75 mg Effexor tablets Currently pink slipped with a sitter, psychiatry following Anticipate transfer to pending decrease in creatine kinase levels (3) Depression Current Visit: Yes Status: Acute Assessment and Plan: Secondary to recent breakup with his Patient does appear very depressed He was visited by pyschiatry yesterday who recommended inpatient psychiatric hospitalization No indication for Antidepressant pharmacotherapy at this time 2/2 recent medication overdose Psychiatry will adjust medications for treatment of depression pending medical clearance DVT Prophylaxis: scd - Time Spent with Patient Total time spent is greater than 50% in coordination of care (as documented) at patient's floor/unit and/or counseling patient: Internal Medicine: Result - Labs CBC & Chem 7: 01/26/19 07:29 01/27/19 04:07 Labs: Short CBC 01/26/19 Range/Units 07:29 WBC 7.4 (4.3-11.1) K/mcL Hgb 14.2 (12.9-16.9) g/dL Hct 41.5 (37.5-50.1) % Plt Count 288 (140-400) K/mcL BMP 01/26/19 01/27/19 07:29 04:07 Sodium 142 140 Potassium 4.0 3.8 Chloride 107 108 H Carbon Dioxide 24 26 BUN 9 11 Creatinine 0.79 0.90 Glucose 85 94 Calcium 8.9 8.9 Liver Function 01/26/19 Range/Units 07:29 Total Bilirubin 1.0 (0.3-1.0) mg/dL AST 51 H (13-39) Units/L ALT 24 (7-52) Units/L Alkaline Phosphatase 52 (34-104) Units/L Albumin 4.3 (3.5-5.7) g/dL Consult Discharge Plan - Plan Referrals: Milka Ardon MD [Non-Partnered Physician] - <Suhail Mercedes - Last Filed: 01/27/19 16:56> Hospitalist Progress Note - Encounter Date of Encounter: 01/27/19 - Exam Vitals: Temp Pulse Resp BP Pulse Ox 98.4 F 73 16 116/82 97 01/27/19 16:06 01/27/19 16:06 01/27/19 16:06 01/27/19 16:06 01/27/19 16:06 - Assessment and Plan (1) DVT prophylaxis Current Visit: No Status: Acute (2) Elevated LFTs Current Visit: No Status: Resolved (3) Suicide attempt by drug overdose Current Visit: Yes Status: Acute (4) Rhabdomyolysis Current Visit: Yes Status: Acute (5) Depression Current Visit: Yes Status: Acute (6) Tobacco abuse Current Visit: Yes Status: Chronic - Time Spent with Patient Total time spent is greater than 50% in coordination of care (as documented) at patient's floor/unit and/or counseling patient: Internal Medicine: Result - Labs CBC & Chem 7: 01/26/19 07:29 01/27/19 04:07 Labs: BMP 01/27/19 04:07 Sodium 140 Potassium 3.8 Chloride 108 H Carbon Dioxide 26 BUN 11 Creatinine 0.90 Glucose 94 Calcium 8.9 - Attending Attestation I examined this patient and my medical decision-making was reviewed with the Resident Physician on 01/27/19. I agree with the documented findings, disposition and treatment plan as described except to the extent set forth below. Mr Richard is currently admitted for acute rhabdo following OD of Effexor. He remains moderate to high risk due to potential for worsening clinical status. Mr Richard feels OK. CPK decreasing - now about 1500. No aches. No new issues. Exam: Alert. Comfortable. Mucus membranes moist. NC. Neck supple. Not tachycardic. No wheeze. Abd soft. No edema. No rash. Moves all ex tremities. Plan: Continue IV fluids. Expect will be able to discharge to tomorrow. <Hardik Strange - Last Filed: 01/27/19 11:21> (1) Rhabdomyolysis Qualifiers: Rhabdomyolysis type: non-traumatic Qualified Code(s): M62.82 - Rhabdomyolysis (3) Depression Qualifiers: Depression Type: major depressive disorder Major depression recurrence: recurrent Active/Remission status: currently active Major depression episode severity: severe Psychotic features: without psychotic features Qualified Code(s): F33.2 - Major depressive disorder, recurrent severe without psychotic features <Suhail Mercedes - Last Filed: 01/27/19 16:56> (4) Rhabdomyolysis Qualifiers: Rhabdomyolysis type: non-traumatic Qualified Code(s): M62.82 - Rhabdomyolysis (5) Depression Qualifiers: Depression Type: major depressive disorder Major depression recurrence: recurrent Active/Remission status: currently active Major depression episode severity: severe Psychotic features: without psychotic features Qualified Code(s): F33.2 - Major depressive disorder, recurrent severe without psychotic features
[2019-01-27] MEDS: 0.9 % Sodium Chloride 1,000 ML IVC SCH ×2 (07:59→19:43)
[2019-01-28 04:30] LABS: BUN/Creatinine Ratio 15 (6-26); Blood Urea Nitrogen 15 mg/dL (6-20); Calcium 8.9 mg/dL (8.6-10.3); Carbon Dioxide 28 mEq/L (23-29); Chloride 105 mEq/L (98-107); Creatine Kinase 833 Units/L (30-223); Glucose 90 mg/dL (70-105); Magnesium 1.9 mg/dL (1.6-2.6); Osmolality,Calculated 302 (280-300); Potassium 4.2 mEq/L (3.5-5.1); Sodium 146 mEq/L (136-145); eGFR For African Americans > 60 (> 60); eGFR For Non-African Americans > 60 (> 60)
[2019-01-28] MEDS: 0.9 % Sodium Chloride 1,000 ML IVC SCH ×2 (05:18→10:06)
[2019-01-28 07:30] VITALS: BP 112/70
--- NOTE | 2019-01-28 11:56 | Discharge Summary ---
<Hardik Strange M - Last Filed: 01/28/19 16:29> - NOTES TO OUTPATIENT PROVIDER Notes to Outpatient Provider: Patient admitted for rhabdomyolysis secondary to suicide attempt with overdose of Effexor. Patient was medically cleared and admitted for inpatient psychiatric hospitalization. Patient will need follow-up outpatient for management of his depression, and psychiatric consultation for ongoing counseling. Orders not resulted at time of discharge: Pending orders 01/28/19 04:00 Urinalysis Dipstick Only [URIN] AM 0400 Date of Encounter: 01/28/19 Time of Encounter: 08:00 - Discharge Diagnosis (1) Rhabdomyolysis Priority: Primary Status: Acute Qualifiers: Rhabdomyolysis type: non-traumatic Qualified Code(s): M62.82 - Rhabdomyolysis (2) Suicide attempt by drug overdose Priority: Secondary Status: Acute (3) Depression Priority: Secondary Status: Acute Qualifiers: Depression Type: major depressive disorder Major depression recurrence: recurrent Active/Remission status: currently active Major depression episode severity: severe Psychotic features: without psychotic features Qualified Code(s): F33.2 - Major depressive disorder, recurrent severe without psychotic features Hospital course: Mr. Richard is a 33 year old male who presented to the emergency department after suicide attempt. He had attempted overdose on Effexor, 75 mg X 10 tablets in the software applications architect of January 25. This was provoked by his leaving him and the patient ultimately ended up at the [facility] but was subsequently referred to [facility] emergency department. In the emergency department, the patient was placed on a 72 hour pink slip hold. He denied chest pain, shortness of breath, muscle aches/pains, hematuria, the patient's vitals were stable and physical exam was benign. CBC was unremarkable, he had a potassium of 3.2, elevated AST and ALT in addition to elevated alkaline phosphatase. Urinalysis was negative. Urine drug screen was positive only for marijuana. Blood alcohol level was undetectable. EKG showed normal sinus rhythm. Of note, the patient did have a creatine kinase of 3193. The patient was admitted to the hospital for rhabdomyolysis. The patient was started on IV fluids. The patient's creatine kinase did begin to decline on hospital day 2, 1533. He did not develop any new signs or symptoms of rhabdomyolysis and on hospital day 3 his CK was under 1000. Psychiatry was consult that on hospital day 2 and recommended that he be medically cleared initially and then they would accept him for transfer to the inpatient psychiatric unit. He was deemed stable enough for discharge to inpatient psychiatric unit on hospital day 3. The patient signed a voluntary admission into the psychiatric unit. He was m edically stable and transferred on January 28. Discharge discussed with: patient, nurse - Time Spent with Patient Total time spent providing and/or coordinating discharge services: Time spent: Greater than 30 minutes - Discharge Medications Prescriptions: Continued No Known Home Drugs 1 each .ROUTE AD each Home Medications: No Known Home Drugs 01/25/19 [History] Allergies/Adverse Reactions: Allergy/AdvReac Type Severity Reaction Status Date / Time dicyclomine [From Bentyl] Allergy Anaphylaxis Verified 01/25/19 22:19 hydrocodone [From [place]] Allergy Itching Verified 01/25/19 22:19 morphine Allergy Difficulty Verified 01/25/19 22:19 Breathing oxycodone [From Percocet] Allergy Hives Verified 01/25/19 22:19 Date of admission: 01/25/19 20:54 Primary care physician: PCP NONE Consults: 01/25/19 23:29 Consult to Psychiatry [CONS] Routine Consulting Provider: Psychiat[facility] [place] Reason consult: Anthony slip on chart Anthony Slip initiated date and time: 01/25/19, 1530 Call Completed: Yes Discharging clinician: Hardik Strange Anticipated date of discharge: 01/28/19 - Constitutional Vitals: Temp Pulse Resp BP Pulse Ox 98.2 F 73 15 112/70 97 01/28/19 07:26 01/28/19 07:26 01/28/19 07:26 01/28/19 07:26 01/28/19 07:43 General appearance: Present: cooperative, A&O X 3, pleasant, no acute distress, answers questions appropriately Exam: Gen: AXO x3, NAD Head: Atraumatic, normocephalic Eyes: EOMI, Anicteric ENT: oropharynx clear, MMM CV: RRR, no mumurs gallops rubs Resp: CTAB, no wheezes rales rhonchi Abd: Soft, nontender, nonrigid Ext: no rash, no cyanosis, no clubbing - Patient Status Disposition: Transfer Psychiatric Hosp Condition: Good Functional capacity at discharge: independent ambulation Overall status at discharge: patient is progressing back to baseline - Discharge Instructions Instructions: Depression (DC) Follow Up With: Milka Ardon MD [Non-Partnered Physician] - - Diet and Activity Activity: increase activity as tolerated Diet: advance to your usual diet <Suhail Mercedes - Last Filed: 01/28/19 17:49> Date of Encounter: 01/28/19 - Discharge Diagnosis (1) Suicide attempt by drug overdose Status: Acute (2) Rhabdomyolysis Status: Acute Qualifiers: Rhabdomyolysis type: non-traumatic Qualified Code(s): M62.82 - Rhabdomyolysis (3) Depression Status: Acute Qualifiers: Depression Type: major depressive disorder Major depression recurrence: recurrent Active/Remission status: currently active Major depression episode severity: severe Psychotic features: without psychotic features Qualified Code(s): F33.2 - Major depressive disorder, recurrent severe without psychotic features (4) Tobacco abuse Status: Chronic Hospital course: Mr. Richard is a 33 year old male - Time Spent with Patient Total time spent providing and/or coordinating discharge services: Date of admission: 01/25/19 20:54 Primary care physician: PCP NONE Consults: 01/25/19 23:29 Consult to Psychiatry [CONS] Routine Consulting Provider: Psychiat[facility] [place] Reason consult: Anthony slip on chart Anthony Slip initiated date and time: 01/25/19, 1530 Call Completed: Yes - Constitutional Vitals: Temp Pulse Resp BP Pulse Ox 98.2 F 73 15 112/70 97 01/28/19 07:26 01/28/19 07:26 01/28/19 07:26 01/28/19 07:26 01/28/19 07:43 - Attending Attestation I examined this patient and my medical decision-making was reviewed with the Resident Physician on 01/28/19. I agree with the documented findings, disposition and treatment plan as described except to the extent set forth below. Mr Richard has been admitted for acute rhabdo following an intentional OD of Effexor. He was treated aggressively with fluids and has had steady decrease in CPK. Renal function has remained normal. He is ready for discharge - CPK can be followed on 1A. Exam: Alert. Comfortable. Mucus membranes moist. Heart reg. No wheeze. Abd soft. No rash. No edema. D/C time 36min
== END 2019-01-28 15:42 ==
LOC: 3ANU 16:23 → EMEROOARM 16:23 → SUATTDRO 20:54 → 3ANU 21:50
PROVIDERS: ADMIT Internal Medicine; ATTEND Internal Medicine

== ENCOUNTER 2019-01-28 15:37 | Observation (INO) ==
[2019-01-28] MEDS ORDERED: Nicotine 2 MG GUM BC PRN (16:29)
[2019-01-28] MEDS ORDERED: MOM Conc 10 ML UD.LIQ PO PRN (16:29)
[2019-01-28] MEDS ORDERED: Haloperidol Lactate 5 MG/ML VIAL IM PRN (16:29)
[2019-01-28] MEDS ORDERED: Acetaminophen 325 MG TABLET PO PRN (16:29)
[2019-01-28] MEDS ORDERED: *HR* LORazepam 1 MG TABLET PO PRN (16:29)
[2019-01-28] MEDS ORDERED: hydrOXYzine pamoate 25 MG CAPSULE PO PRN (16:29)
[2019-01-28] MEDS ORDERED: traZODone 50 MG TABLET PO PRN (16:29)
[2019-01-28] MEDS ORDERED: *HR* LORazepam 2 MG/ML VIAL IM PRN (16:29)
[2019-01-28] MEDS ORDERED: Mag Hydrox/Al Hydrox/Simeth 30 ML UDC PO PRN (16:29)
[2019-01-29 08:47] VITALS: BP 119/74
--- NOTE | 2019-01-29 11:27 | Discharge Summary ---
Date of Encounter: 01/29/19 Time of Encounter: 10:56 History of Present Illness Chief complaint: overdose Admitted From: Home History of Present Illness: Mr. Richard is a 33 year old male who was admitted as a transfer from the medical floor. He was admitted medically due to an overdose on Effexor. Client only took 10 pills as it was an old prescription and that was all he had left. However, he required medical stabilization as his CK levels were elevated upon initial presentation. Psychiatry saw client as a consult while he was on the medical floor. At the time client looked depressed and admitted the OD was a suicide attempt. Today client looks completely different. He has affect. He is smiling and joking. He is denying any further SI, intent, or plan. He is reporting he made an "impulsive" "stupid" mistake. Client has no real mental health history. He reports taking Ativan in the 8th grade for anxiety. States it helped him then but that he does not need it anymore. Does admit to sleeping difficulties but states his trouble sleeping is due to working third shift and then coming home to help take care of three kids in the house. Thinks being in the hospital for the last few days and not having access to his phone has allowed him to sleep and that is a large part of the reason why he feels so much better. Client states he saw his PCP a couple of years ago for his sleeping difficulties and that was why he was prescribed the Effexor to begin with. However, client states he did not like the way it made him feel and he stopped it on his own. Still had ten pills left from the initial prescription which is what he took as the overdose. Client states he does not like pills and does not want prescribed anything for depression. Agreeable to following up with a counselor. Client denies any mental health problems on his mother's side of the family. Never knew his father or anyone from his paternal side of the family. Client states he is physically healthy except for a shoulder that has been operated on multiple times. Client states he has chronic pain in his shoulder which has contributed to his moodiness. Client denies any AOD use except for occasional THC. Used to be a heavy drinker but quit when his daughter was born. Now has five children. Client states the biggest trigger for his overdose attempt was that his eleven year old daughter lives with his sister outside of [place] and he has not been allowed to see her in the last five years. Has been in a long custody corado to try and get visitation rights. Client states he moved to [place] with his daughter five years ago but that he did not like the city life. Contacted his old boss and found out he could have his job back in [place]. Sister agreed to care for his daughter until client was able to reestablish himself in [place] provided he sent money every month. Client granted temporary custody to his sister so she could get his daughter into school and to the doctor if needed. Client states he was only back a month before he injured his shoulder at work and needed surgery. The surgery was far more complicated than anticipated and client was out of work for an extended period of time and was unable to make the monthly payments to his sister. She filed abandonment charges and gained full custody of his daughter. Client states he has been fighting this decision ever since and that not getting to see his daughter in five years has weighed on him. However, client states he is now with four other children. He has a house, a stable job, and cars. Has a court date next week to help get his visitation rights back. Client states he has too much to live for and that he has no further thoughts of ending his life. Spoke with client's who feels comfortable having client come home. She states client is garibay and can get angry but that his anger is centered on family issues. Denies client is violent toward her or the children or at work. However, he will punch things as a stress outlet and she does not want her children exposed to this. She is supportive of client and does not feel like he is a further suicide risk. However, she is concerned he will not open up to a counselor as he is not one to talk about his problems. Client agrees with this but states he is willing to try as he does not want medications. Today client is bright, reactive, and future oriented. He is denying any further thoughts of suicide and has no prior history of attempts. Willing to try counseling for moodiness and anger. Will discharge to follow up as an outpatient. Total time spent with client greater than 30 minutes. Past Med Surg Social Fam HX - Past Medical History Medical history: GERD, myocardial infarction - Past Psychiatric History Psychiatric history: Reports: no psych history Family psychiatric history: No Family History of Suicide: None - Past Surgical History Surgical History: appendectomy, cholecystectomy, orthopedic, other - Social History Smoking Status: Current every day smoker Smokeless Tobacco Status: No Alcohol use: none Drug use: none - Family History Mother Living Status: Still Living Hx Family Cancer: Yes (Lung, Breast, Colorectal cancer) Medications - Discharge Medications No Known Home Drugs 01/25/19 [History] Allergy/AdvReac Type Severity Reaction Status Date / Time dicyclomine [From [place]yl] Allergy Anaphylaxis Verified 01/25/19 22:19 hydrocodone [From [place]] Allergy Itching Verified 01/25/19 22:19 morphine Allergy Difficulty Verified 01/25/19 22:19 Breathing oxycodone [From Percocet] Allergy Hives Verified 01/25/19 22:19 Review of Systems Constitutional: Denies: fever, chills, weakness, weight change Eyes: Denies: eye pain, vision change Ears, Nose, Throat: Denies: ear pain, throat pain, dental pain, hearing loss, congestion Cardiovascular: Denies: chest pain, palpitations, dyspnea on exertion Respiratory: Denies: cough, dyspnea, wheezes Gastrointestinal: Denies: abdominal pain, nausea, vomiting, diarrhea, constipation Genitourinary male: Denies: urgency, dysuria, frequency, genital lesions Musculoskeletal: Denies: joint swelling, joint pain Integumentary: Denies: rash, lesions, pruritus Neurological: Denies: headache, weakness, numbness, memory loss Endocrine: Denies: fatigue, heat or cold intolerance Hematologic/Lymphatic: Denies: easy bruising, lymphadenopathy Allergic/Immunologic: Denies: urticaria, itchy eyes Exam - HEENT Head exam IM: Present: atraumatic Eye exam IM: Present: EOMI, normal appearance, PERRL ENT exam IM: Present: normal exam - Neurological Neurological exam: Present: CN II-XII intact - Respiratory Respiratory exam IM: Present: CTAB - GI/Abdominal GI/Abdominal exam IM: Present: normal bowel sounds, soft. Absent: tenderness - Extremities Extremities exam IM: Present: full ROM - Skin Skin exam IM: Present: dry, warm - Constitutional Vitals: Temp Pulse Resp BP Pulse Ox 98.6 F 60 16 119/74 100 01/29/19 08:46 01/29/19 08:46 01/29/19 08:46 01/29/19 08:46 01/29/19 08:46 General appearance: age & developmentally appropriate, well-groomed, well- nourished - Musculoskeletal Gait: normal Station: relaxed Strength & Tone: normal for patient - Psychiatric Patient Orientation: Yes Person, Yes Time, Yes Place Level of alertness: Alert Behavior: calm, cooperative Psychomotor activity: Normal Eye Contact: Maintains Eye Contact Mood Description: Euthymic/stable Affect description: congruent with mood, full range Speech Volume: Normal Speech pattern: normal rate, normal rhythm, normal tone, fluent, spontaneous Language & Vocabulary: consistent with education Thought Process: Linear, Goal Oriented Thought Content: No Suicidal ideation, No Homicidal ideation, No Overt delusions Perceptual Disturbances: No Auditory hallucinations, No Visual hallucinations Attention Span Ability: Capable of Focused Attention Memory Description: Grossly Intact Patient Reliability: Reliable Historian Fund of knowledge: Yes abstraction ability, Yes average, Yes aware of current events Intelligence Estimate: Average Judgment: Limited Insight: Partial Diagnosis - Discharge Diagnosis (1) Major depression Status: Acute Qualifiers: Major depression recurrence: recurrent Active/Remission status: currently active Major depression episode severity: moderate Qualified Code(s): F33.1 - Major depressive disorder, recurrent, moderate Assessment and Plan - Patient/Caregiver Discharge Instructions Activity: resume usual activities as tolerated Diet: regular diet - Follow up Plan Functional capacity at discharge: independent ambulation Overall status at discharge: Stable Disposition: Home, Self-Care Provider Date of admission: 01/29/19 09:27 Discharging clinician: Mariela Cazares Hospital Course Hospital course: Mr. Richard is a 33 year old male who was admitted as a transfer from the medical floor. He was admitted medically due to an overdose on Effexor. Client only took 10 pills as it was an old prescription and that was all he had left. However, he required medical stabilization as his CK levels were elevated upon initial presentation. Psychiatry saw client as a consult while he was on the medical floor. At the time client looked depressed and admitted the OD was a suicide attempt. Today client looks completely different. He has affect. He is smiling and joking. He is denying any further SI, intent, or plan. He is reporting he made an "impulsive" "stupid" mistake. Client has no real mental health history. He reports taking Ativan in the 8th grade for anxiety. States it helped him then but that he does not need it anymore. Does admit to sleeping difficulties but states his trouble sleeping is due to working third shift and then coming home to help take care of three kids in the house. Thinks being in the hospital for the last few days and not having access to his phone has allowed him to sleep and that is a large part of the reason why he feels so much better. Client states he saw his PCP a couple of years ago for his sleeping difficulties and that was why he was prescribed the Effexor to begin with. However, client states he did not like the way it made him feel and he stopped it on his own. Still had ten pills left from the initial prescription which is what he took as the overdose. Client states he does not like pills and does not want prescribed anything for depression. Agreeable to following up with a counselor. Client denies any mental health problems on his mother's side of the family. Never knew his father or anyone from his paternal side of the family. Client states he is physically healthy except for a shoulder that has been operated on multiple times. Client states he has chronic pain in his shoulder which has contributed to his moodiness. Client denies any AOD use except for occasional THC. Used to be a heavy drinker but quit when his daughter was born. Now has five children. Client states the biggest trigger for his overdose attempt was that his eleven year old daughter lives with his sister outside of [place] and he has not been allowed to see her in the last five years. Has been in a long custody corado to try and get visitation rights. Client states he moved to [place] with his daughter five years ago but that he did not like the city life. Contacted his old boss and found out he could have his job back in [place]. Sister agreed to care for his daughter until client was able to reestablish himself in [place] provided he sent money every month. Client granted temporary custody to his sister so she could get his daughter into school and to the doctor if needed. Client states he was only back a month before he injured his shoulder at work and needed surgery. The surgery was far more complicated than anticipated and client was out of work for an extended period of time and was unable to make the monthly payments to his sister. She filed abandonment charges and gained full custody of his daughter. Client states he has been fighting this decision ever since and that not getting to see his daughter in five years has weighed on him. However, client states he is now with four other children. He has a house, a stable job, and cars. Has a court date next week to help get his visitation rights back. Client states he has too much to live for and that he has no further thoughts of ending his life. Spoke with client's who feels comfortable having client come home. She states client is garibay and can get angry but that his anger is centered on family issues. D enies client is violent toward her or the children or at work. However, he will punch things as a stress outlet and she does not want her children exposed to this. She is supportive of client and does not feel like he is a further suicide risk. However, she is concerned he will not open up to a counselor as he is not one to talk about his problems. Client agrees with this but states he is willing to try as he does not want medications. Today client is bright, reactive, and future oriented. He is denying any further thoughts of suicide and has no prior history of attempts. Willing to try counseling for moodiness and anger. Will discharge to follow up as an outpatient. Total time spent with client greater than 30 minutes. Patient was educated of his diagnosis and the risks, benefits, and side effects of this treatment and alternative treatment options and was monitored for responsiveness and side effects. Mood, anxiety, sleep, appetite, and interest improved, as did future orientation. Self-harm thoughts subsided, thinking cleared, psychosis resolved, and mood stabilized. Patient was able to attend both individual and group therapy sessions as well as meeting with the psychiatrist daily and urged to discuss any medication or treatment issues or other concerns. The patient was educated primarily by verbal means about their diagnosis and manifestations in their life. The option for treatment including group and individual therapy programming was offered to the patient in the use of medications with all their potential risks, benefits, and side effects were discussed with the patient at length. The patient was given the opportunity to ask questions and was noted to participate in the treatment in the planning process. The patient felt ready and eager to be discharged from the inpatient psychiatric unit to continue on with treatment as an outpatient. The patient agreed that he is safe for this disposition. The patient was considered to be able to participate in informed consent and decision making with respect to medical, legal, and financial issues of the time of discharge. At the time of discharge the patient adamantly denied any concerns for lethality including suicidal or homicidal thoughts ideations or plans and was future oriented toward ongoing mental health care, medical follow-up and sobriety. - Time Spent with Patient Total time spent providing and/or coordinating discharge services: Greater than 30 minutes Procedures - Procedures Procedures: Medication Management, Crisis Stabilization, Supportive Therapy, Group Therapy Quality - Multiple Antipsychotics Patient discharged on 2 or more antipsychotic medications: No
== END 2019-01-29 12:20 | disposition home or self-care (01) ==
LOC: 1ANU 15:37 → INTOOBSV 15:37
PROVIDERS: ADMIT Psychiatry & Neurology Psychiatry; ATTEND Psychiatry & Neurology Psychiatry